=== PATIENT | male | born 1950 | race Caucasian/White ===

== ENCOUNTER 2018-11-04 02:22 | Inpatient (IN) | payer MEDICARE, OTHER ==
[2018-11-04] MEDS ORDERED: NOREPINEPHRINE 4 MG in SODIUM CHLORIDE 0.9% 250 ML IV SCH (02:30)
[2018-11-04 02:41] LABS: Basophils % (A) 0 %; Eosinophils # (A) 0.1 k/uL (0-0.7); Eosinophils % (A) 1 %; HCT 31.8 % (39.0-53.0); HGB 10.1 gm/dL (13.0-17.5); Lymphocytes # (A) 1.2 k/uL (1.0-4.8); Lymphocytes % (A) 5 %; MCH 30.2 pg (25.0-35.0); MCHC 31.8 g/dL (31.0-37.0); MCV 94.9 fL (80.0-100.0); Mean Platelet Volume 6.5; Monocytes # (A) 0.4 k/uL (0-1.0); Monocytes % (A) 2 %; Neutrophils # (A) 21.8 k/uL (1.3-7.7); Neutrophils % (A) 93 %; Platelet Count 200 k/uL (150-450); RBC 3.36 m/uL (4.30-5.90); WBC 23.6 k/uL (3.8-10.6)
[2018-11-04] MEDS: SODIUM CHLORIDE 0.9% 1,000 ML IV SCH ×2 (02:42→15:28)
--- NOTE | 2018-11-04 02:46 | ED ---
General Adult HPI - General Stated complaint: Pneumonia Time Seen by Provider: 11/04/18 02:26 Source: RN/ Mode of arrival: EMS Limitations: no limitations - History of Present Illness Initial comments: Lorenzo is a pleasantly developmentally delayed 68-year-old gentleman who is transferred to our facility from an outside facility for further management of suspected healthcare associated Pneumonia. Patient was taken to the outside facility for evaluation of fever and tachypnea. Patient was found to have an oxygen saturation of 90% be tachypneic and febrile upon his initial arrival. He was treated with vancomycin 2 L of IV fluid and initially leave fed was initiated however blood pressure improved and later said was discontinued upon arrival to our hospital. - Related Data Home Medications Medication Instructions Recorded Confirmed Acetaminophen [Tylenol] 500 mg PO Q4HR PRN 08/08/16 08/08/16 Ascorbic Acid [Vitamin C] 1,000 mg PO DAILY@0900 08/08/16 08/08/16 Atorvastatin [Lipitor] 10 mg PO DAILY 08/08/16 08/08/16 Benztropine Mesylate [Cogentin] 1 mg PO DAILY 08/08/16 08/08/16 Bethanechol [Urecholine] 25 mg PO TID@0900,1300,2100 08/08/16 08/08/16 Bisacodyl [Dulcolax] 10 mg RECTAL Q24H PRN 08/08/16 08/08/16 Eucalyptus Oil/Menthol/Camphor 1 applic TOPICAL TID PRN 08/08/16 08/08/16 [Vicks Vaporub Ointment] FLUoxetine HCL [PROzac] 10 mg PO DAILY 08/08/16 08/08/16 Ferrous Sulfate [Iron (65 MG 325 mg PO DAILY 08/08/16 08/08/16 Elemental)] Haloperidol 5 mg PO DAILY PRN 08/08/16 08/08/16 Ipratropium-Albuterol Nebulize 3 ml INHALATION RT-Q6H PRN 08/08/16 08/08/16 [Duoneb 0.5 mg-3 mg/3 ml Soln] Loratadine 10 mg PO DAILY@0900 08/08/16 08/08/16 Magnesium Hydroxide [Milk of 2,400 mg PO DAILY PRN 08/08/16 08/08/16 Magnesia] Montelukast [Singulair] 10 mg PO DAILY@0900 08/08/16 08/08/16 Multivitamins, Thera [Multivitamin 1 tab PO DAILY@0900 08/08/16 08/08/16 (formulary)] Nystatin 100,000Unit/gm Cream 1 applic TOPICAL BID 08/08/16 08/08/16 [Mycostatin Cream] Nystatin 100,000Unit/gm Cream 1 applic TOPICAL DAILY PRN 08/08/16 08/08/16 [Mycostatin Cream] OXcarbazepine 600 mg PO BID@0900,1700 08/08/16 08/08/16 Omeprazole 20 mg PO DAILY@0600 08/08/16 08/08/16 Polyethylene Glycol 3350 [Miralax] 17 gm PO DAILY@0900 08/08/16 08/08/16 Sucralfate [Carafate] 1 gm PO QID 08/08/16 08/08/16 clonazePAM [KlonoPIN] 0.5 mg PO TID@0500,1300,2100 08/08/16 08/08/16 Previous Rx's Medication Instructions Recorded HYDROcodone/APAP 7.5-325MG [[place] 1 tab PO Q4H PRN #20 tab 08/12/16 7.5-325] Cefuroxime Axetil [Ceftin] 500 mg PO BID #20 tablet 08/14/16 Ipratropium-Albuterol Nebulize 3 ml INHALATION QID #120 neb 08/14/16 [Duoneb 0.5 mg-3 mg/3 ml Soln] Allergies Allergy/AdvReac Type Severity Reaction Status Date / Time barley Allergy Unknown Verified 08/08/16 00:51 Cephalosporins Allergy Unknown Verified 08/08/16 00:51 chocolate flavor Allergy Unknown Verified 08/08/16 00:51 corn Allergy Unknown Verified 08/08/16 00:51 divalproex sodium Allergy Unknown Verified 08/08/16 00:51 [From Depakote] Penicillins Allergy Unknown Verified 08/08/16 00:51 Quinolones Allergy Unknown Verified 08/08/16 00:51 strawberry Allergy Unknown Verified 08/08/16 00:51 tree nut [Nut] Allergy Unknown Verified 08/08/16 00:51 Review of Systems ROS Statement: Those systems with pertinent positive or pertinent negative responses have been documented in the HPI. ROS Other: All systems not noted in ROS Statement are negative. Limitations: ROS unobtainable due to patients medical condition (Cognitive impairment) Past Medical History Past Medical History: COPD, GERD/Reflux, Hyperlipidemia, Hypertension, Pneumonia , Seizure Disorder Additional Past Medical History / Comment(s): cerebral palsy, iron deficiency anemia History of Any Multi-Drug Resistant Organisms: None Reported Additional Past Surgical History / Comment(s): fracture of shaft of left fibula and upper end of tibia Past Psychological History: Anxiety, Depression Smoking Status: Unknown if ever smoked General Exam - General Exam Comments Initial Comments: Physical Exam GENERAL: Syndromic appearance HENT: Normocephalic, Atraumatic. EYES: PERRL, EOMI PULMONARY: Tachypnea CARDIOVASCULAR: There is a regular rate and rhythm without any murmurs gallops or rubs. ABDOMEN: Soft and nontender with normal bowel sounds. SKIN: Skin is clear with no lesions or rashes and otherwise unremarkable. : Deferred NEUROLOGIC: Alert and oriented to person aware that he is at the hospital MUSCULOSKELETAL: Cerebral palsy PSYCHIATRIC: Childlike demeanor Limitations: no limitations Limitations: no limitations Course Vital Signs 11/04/18 11/04/18 11/04/18 02:28 02:30 02:31 Temperature 97.8 F Pulse Rate 91 Respiratory 18 16 Rate Blood Pressure 134/82 134/82 O2 Sat by Pulse 98 98 95 Oximetry 11/04/18 11/04/18 02:50 03:10 Temperature Pulse Rate 87 81 Respiratory 16 20 Rate Blood Pressure 132/80 116/74 O2 Sat by Pulse 94 L 94 L Oximetry EKG Findings - EKG Comments: EKG Findings:: EKG obtained at 2:32 AM rate is 87 rhythm is sinus there is a normal axis, normal intervals, ND 178, QRS 78, QTC 454. There are no acute ST elevations or depressions no evidence of acute ischemia or infarction. Medical Decision Making - Medical Decision Making Patient care was discussed with transferring physician as well as Dr. Luu who is aware of the plan for transfer and accepts the admission to his service Patient was suspected HCHP pneumonia treated with vancomycin Patient was initially treated with a norepinephrine infusion however on arrival his blood pressure had a MAP >80 therefore it was discontinued Repeat labs ordered Patient reevaluated After a liter discontinued, continues to have normal blood pressure. Not tachycardic afebrile. This time the patient is stable for admission to the general medical floor - Lab Data Result diagrams: 11/04/18 02:31 11/04/18 02:31 Lab Results 11/04/18 11/04/18 11/04/18 Range/Units 02:31 02:31 02:31 WBC 23.6 H (3.8-10.6) k/uL RBC 3.36 L (4.30-5.90) m/uL Hgb 10.1 L (13.0-17.5) gm/dL Hct 31.8 L (39.0-53.0) % MCV 94.9 (80.0-100.0) fL MCH 30.2 (25.0-35.0) pg MCHC 31.8 (31.0-37.0) g/dL RDW 14.0 (11.5-15.5) % Plt Count 200 (150-450) k/uL Neutrophils % 93 % Lymphocytes % 5 % Monocytes % 2 % Eosinophils % 1 % Basophils % 0 % Neutrophils # 21.8 H (1.3-7.7) k/uL Lymphocytes # 1.2 (1.0-4.8) k/uL Monocytes # 0.4 (0-1.0) k/uL Eosinophils # 0.1 (0-0.7) k/uL Basophils # 0.0 (0-0.2) k/uL PT (9.0-12.0) sec INR (<1.2) APTT (22.0-30.0) sec Sodium 136 L (137-145) mmol/L Potassium 4.9 (3.5-5.1) mmol/L Chloride 109 H (98-107) mmol/L Carbon Dioxide 23 (22-30) mmol/L Anion Gap 4 mmol/L BUN 24 H (9-20) mg/dL Creatinine 0.87 (0.66-1.25) mg/dL Est GFR (CKD-EPI)AfAm >90 (>60 ml/min/1.73 sqM) Est GFR (CKD-EPI)NonAf 88 (>60 ml/min/1.73 sqM) Glucose 119 H (74-99) mg/dL Plasma Lactic Acid Micheal (0.7-2.0) mmol/L Calcium 7.6 L (8.4-10.2) mg/dL Total Bilirubin 0.4 (0.2-1.3) mg/dL AST 102 H (17-59) U/L ALT 99 H (21-72) U/L Alkaline Phosphatase 152 H (38-126) U/L Total Creatine Kinase 38 L (55-170) U/L CK-MB (CK-2) 0.8 (0.0-2.4) ng/mL CK-MB (CK-2) Rel Index 2.1 Troponin I <0.012 (0.000-0.034) ng/mL Total Protein 4.9 L (6.3-8.2) g/dL Albumin 2.4 L (3.5-5.0) g/dL 11/04/18 11/04/18 Range/Units 02:31 02:31 WBC (3.8-10.6) k/uL RBC (4.30-5.90) m/uL Hgb (13.0-17.5) gm/dL Hct (39.0-53.0) % MCV (80.0-100.0) fL MCH (25.0-35.0) pg MCHC (31.0-37.0) g/dL RDW (11.5-15.5) % Plt Count (150-450) k/uL Neutrophils % % Lymphocytes % % Monocytes % % Eosinophils % % Basophils % % Neutrophils # (1.3-7.7) k/uL Lymphocytes # (1.0-4.8) k/uL Monocytes # (0-1.0) k/uL Eosinophils # (0-0.7) k/uL Basophils # (0-0.2) k/uL PT 10.8 (9.0-12.0) sec INR 1.0 (<1.2) APTT 26.4 (22.0-30.0) sec Sodium (137-145) mmol/L Potassium (3.5-5.1) mmol/L Chloride (98-107) mmol/L Carbon Dioxide (22-30) mmol/L Anion Gap mmol/L BUN (9-20) mg/dL Creatinine (0.66-1.25) mg/dL Est GFR (CKD-EPI)AfAm (>60 ml/min/1.73 sqM) Est GFR (CKD-EPI)NonAf (>60 ml/min/1.73 sqM) Glucose (74-99) mg/dL Plasma Lactic Acid Micheal 1.0 (0.7-2.0) mmol/L Calcium (8.4-10.2) mg/dL Total Bilirubin (0.2-1.3) mg/dL AST (17-59) U/L ALT (21-72) U/L Alkaline Phosphatase (38-126) U/L Total Creatine Kinase (55-170) U/L CK-MB (CK-2) (0.0-2.4) ng/mL CK-MB (CK-2) Rel Index Troponin I (0.000-0.034) ng/mL Total Protein (6.3-8.2) g/dL Albumin (3.5-5.0) g/dL Disposition Clinical Impression: HCAP (healthcare-associated pneumonia), Cerebral palsy Disposition: ADMITTED IP TO THIS [facility] Condition: Serious Referrals: None,Stated [REFERRING] - 1-2 days
[2018-11-04 02:49] LABS: Partial Thromboplastin Time 26.4 sec (22.0-30.0); Prothrombin Time 10.8 sec (9.0-12.0)
[2018-11-04 02:51] LABS: Creatine Kinase 38 U/L (55-170)
[2018-11-04 02:52] LABS: ALT 99 U/L (21-72); AST 102 U/L (17-59); Albumin 2.4 g/dL (3.5-5.0); Alkaline Phosphatase 152 U/L (38-126); Anion Gap 4 mmol/L; Blood Urea Nitrogen 24 mg/dL (9-20); Calcium 7.6 mg/dL (8.4-10.2); Carbon Dioxide 23 mmol/L (22-30); Chloride 109 mmol/L (98-107); Glucose 119 mg/dL (74-99); Potassium 4.9 mmol/L (3.5-5.1); Sodium 136 mmol/L (137-145); Total Bilirubin 0.4 mg/dL (0.2-1.3); Total Protein 4.9 g/dL (6.3-8.2)
[2018-11-04 03:04] LABS: Creatine Kinase MB 0.8 ng/mL (0.0-2.4); Troponin I <0.012 ng/mL (0.000-0.034)
[2018-11-04] MEDS ORDERED: NALOXONE 0.4 MG/ML 1 ML VIAL IV PRN (04:00)
[2018-11-04] MEDS ORDERED: ACETAMINOPHEN TAB 500 MG TAB PO PRN (11:31)
[2018-11-04] MEDS ORDERED: IPRATROPIUM-ALBUTEROL 3 ML NEB INHALATION PRN (11:31)
[2018-11-04] MEDS ORDERED: BISACODYL 10 MG SUPP RECTAL PRN (11:31)
[2018-11-04] MEDS ORDERED: VANCOMYCIN IV PER PHARMACY 1 EACH MISC MISCELLANE PRN (14:19)
[2018-11-04] MEDS ORDERED: VANCOMYCIN 1,250 MG in SODIUM CHLORIDE 0.9% 250 ML IVPB ONE (15:00)
[2018-11-04] MEDS: AZTREONAM 2 GM in SODIUM CHLORIDE 0.9% 100 ML IVPB SCH (18:56)
[2018-11-04] MEDS: clonazePAM 0.5 MG TAB PO SCH (20:16)
[2018-11-04] MEDS: ATORVASTATIN 10 MG TAB PO SCH (20:16)
--- NOTE | 2018-11-04 21:30 | P.HPIM ---
History of Present Illness H&P Date: 11/04/18 Chief Complaint: Shortness of breath Patient is a 68-year-old male with a known history of cerebral palsy, developmentally delayed, gait dysfunction, COPD, GERD, hypertension, hyperlipidemia and seizure disorder, dysphagia on mechanical soft diet was initially sent to outside hospital facility due to fever and tachypnea. Patient was found to have oxygen saturation around 90% with fever and tachypnea. Patient had chest x-ray and CTA chest was done due to elevated d- dimer. CT chest showed mid to lower lung bilateral or unilateral pastries with adjacent interstitial thickening. Patient was treated with vancomycin and also occluded to IV fluid bolus was given. Patient was hypotensive initially and was started on Levophed drip and 2 L normal saline was given. Blood pressure improved by the time he arrived to [facility]. Blood pressures currently stable. Patient cannot provide any history at this time. Most of the history was taken from outside hospital transfer records and ER report.. Lactic acid not elevated Influenza a and B and RSV negative D-dimer was slightly elevated. Patient had CTA chest showed no pulmonary embolism. CT angiogram of the chest showed mid to lower lung bilateral alveolar opacities with adjacent interstitial thickening. Tree-in-bud opacities are also noted. Bibasilar bronchial wall thickening. Differential includes ARDS, infectious bronchiolitis, pneumonitis, aspiration, hemorrhage extra. EKG showed normal sinus rhythm. Review of Systems Complete review of systems could not be obtained from the patient Past Medical History Past Medical History: COPD, GERD/Reflux, Hyperlipidemia, Hypertension, Pneumonia , Seizure Disorder Additional Past Medical History / Comment(s): cerebral palsy, developmentally delayed, mental retardation, gait dysfunction, dysphagia-mechanical soft diet and drinks from control flow cup, last seizure-unknown, iron deficiency anemia, UTIs, urinary retention, pneumonias/sepsis, OA, DJD, DDD L1-S1, colitis, constipation, hemorrhoids, bowel obstruction with septic shock, L tibial fracture in past. History of Any Multi-Drug Resistant Organisms: None Reported Past Surgical History: Appendectomy, Cholecystectomy, Joint Replacement, Orthopedic Surgery, Prostate Surgery, Tonsillectomy Additional Past Surgical History / Comment(s): EGD, colonoscopy, L buccal benign lesion, TURP for BPH, R total hip arthroplasty then displacement with surgery, sinus polypectomy. Past Anesthesia/Blood Transfusion Reactions: No Reported Reaction Smoking Status: Never smoker - Past Family History Mother Family Medical History: Cancer Additional Family Medical History / Comment(s): Mother had breast cancer. Medications and Allergies Home Medications Medication Instructions Recorded Confirmed Type Acetaminophen [Tylenol] 500 mg PO Q6H PRN 08/08/16 11/04/18 History Atorvastatin [Lipitor] 10 mg PO HS@2100 08/08/16 11/04/18 History Benztropine Mesylate [Cogentin] 1 mg PO DAILY@0900 08/08/16 11/04/18 History Bethanechol [Urecholine] 25 mg PO TID@0900,1300,2100 08/08/16 11/04/18 History Bisacodyl [Dulcolax] 10 mg RECTAL Q48H PRN 08/08/16 11/04/18 History Ferrous Sulfate [Iron (65 MG 325 mg PO DAILY@0900 08/08/16 11/04/18 History Elemental)] Loratadine 10 mg PO DAILY@0900 08/08/16 11/04/18 History Magnesium Hydroxide [Milk of 2,400 mg PO DAILY PRN 08/08/16 11/04/18 History Magnesia] Montelukast [Singulair] 10 mg PO DAILY@0900 08/08/16 11/04/18 History Multivitamins, Thera [Multivitamin 1 tab PO DAILY@0900 08/08/16 11/04/18 History (formulary)] OXcarbazepine 600 mg PO BID@0900,1700 08/08/16 11/04/18 History Omeprazole 20 mg PO DAILY@0600 08/08/16 11/04/18 History Polyethylene Glycol 3350 [Miralax] 17 gm PO DAILY@0900 08/08/16 11/04/18 History clonazePAM [KlonoPIN] 0.5 mg PO TID@0500,1300,2100 08/08/16 11/04/18 History Ascorbic Acid [Vitamin C] 500 mg PO DAILY@0911/04/18 11/04/18 History Calazime 1 applic TOPICAL BID 11/04/18 11/04/18 History DULoxetine HCL [Cymbalta] 30 mg PO DAILY@0900 11/04/18 11/04/18 History FLUoxetine HCL [PROzac] 20 mg PO DAILY@0911/04/18 11/04/18 History Fluticasone Nasal [place] [Flonase 1 spray EA NOSTRIL DAILY@0900 11/04/18 History Nasal [place]] Haloperidol 2.5 mg PO DAILY@0900,1300,2100 11/04/18 11/04/18 History Haloperidol [Haldol] 10 mg PO TID@0900,1300,2100 11/04/18 11/04/18 History Ipratropium-Albuterol Nebulize 3 ml INHALATION Q12H PRN 11/04/18 11/04/18 History [Duoneb 0.5 mg-3 mg/3 ml Soln] Ipratropium/Albuterol Sulfate 1 puff INHALATION 11/04/18 11/04/18 History [Combivent Respimat Inhaler] RT-QID@,,, Meloxicam [Mobic] 15 mg PO DAILY@0900 11/04/18 11/04/18 History Na Phos,M-B/Na Phos,Di-Ba [Fleet 133 ml RECTAL Q72H PRN 11/04/18 11/04/18 History Adult] guaiFENesin-DM 100-10MG/5ML 10 ml PO Q4H PRN 11/04/18 11/04/18 History [Robitussin DM] Allergies Allergy/AdvReac Type Severity Reaction Status Date / Time barley Allergy Unknown Verified 11/04/18 07:56 Cephalosporins Allergy Unknown Verified 11/04/18 07:56 chocolate flavor Allergy Unknown Verified 11/04/18 07:56 corn Allergy Unknown Verified 11/04/18 07:56 divalproex sodium Allergy Unknown Verified 11/04/18 07:56 [From Depakote] milk Allergy Unknown Verified 11/04/18 07:56 Penicillins Allergy Unknown Verified 11/04/18 07:56 Quinolones Allergy Unknown Verified 11/04/18 07:56 strawberry Allergy Unknown Verified 11/04/18 07:56 tree nut [Nut] Allergy Unknown Verified 11/04/18 07:56 Physical Exam Vitals: Vital Signs Temp Pulse Resp BP Pulse Ox 11/04/18 06:28 78 20 131/75 94 L 11/04/18 04:50 85 20 125/77 11/04/18 04:40 82 20 125/79 99 11/04/18 04:30 83 18 125/75 98 11/04/18 04:10 76 20 125/79 99 11/04/18 03:50 80 18 125/77 100 11/04/18 03:40 84 18 114/69 93 L 11/04/18 03:30 83 18 116/74 93 L 11/04/18 03:10 81 20 116/74 94 L 11/04/18 02:50 87 16 132/80 94 L 11/04/18 02:31 97.8 F 91 16 134/82 95 11/04/18 02:30 18 134/82 98 11/04/18 02:28 98 Intake and Output 11/03/18 11/04/18 11/04/18 22:59 06:59 14:59 Intake Total 0.432 Balance 0.432 Intake: Intake, IV Titration 0.432 Amount Norepinephrine 4 mg In 0.432 Sodium Chloride 0.9% 250 ml @ Titrate IV .Q0M [facility] Rx#:[id number] Other: Weight 54.431 kg PHYSICAL EXAMINATION: Patient is lying in the bed comfortably, no acute distress, awake alert and oriented 1.. HEENT: Normocephalic. Neck is supple. Pupils reactive. Nostrils clear. Oral cavity is moist. Ears reveal no drainage. Neck reveals no JVD, carotid bruits, or thyromegaly. CHEST EXAMINATION: Trachea is central. Symmetrical expansion. Bibasilar coarse breath sounds. No wheezing.. CARDIAC: Normal S1, S2 with no gallops. No murmurs ABDOMEN: Soft. Nontender Bowel sounds normal. No organomegaly. No abdominal bruits. Extremities: reveal no edema. No clubbing or cyanosis Neurologically awake, alert, oriented x1 . Able to move all his extremities. Patient is developmentally delayed. Skin: No rash or skin lesions. Psychiatric: Coperative. Could not basis completely Musculoskeletal: No joint swelling or deformity. Normal range of motion. Results CBC & Chem 7: 11/04/18 02:31 11/04/18 02:31 Labs: Abnormal Lab Results - Last 24 Hours (Table) 11/04/18 11/04/18 11/04/18 Range/Units 02:31 02:31 02:31 WBC 23.6 H (3.8-10.6) k/uL RBC 3.36 L (4.30-5.90) m/uL Hgb 10.1 L (13.0-17.5) gm/dL Hct 31.8 L (39.0-53.0) % Neutrophils # 21.8 H (1.3-7.7) k/uL Sodium 136 L (137-145) mmol/L Chloride 109 H (98-107) mmol/L BUN 24 H (9-20) mg/dL Glucose 119 H (74-99) mg/dL Calcium 7.6 L (8.4-10.2) mg/dL AST 102 H (17-59) U/L ALT 99 H (21-72) U/L Alkaline Phosphatase 152 H (38-126) U/L Total Creatine Kinase 38 L (55-170) U/L Total Protein 4.9 L (6.3-8.2) g/dL Albumin 2.4 L (3.5-5.0) g/dL Thrombosis Risk Factor Assmnt - DVT/VTE Prophylaxis DVT/VTE Prophylaxis: Pharmacologic Prophylaxis ordered - Choose All That Apply Any of the Below Risk Factors Present?: Yes Each Factor Represents 1 point: Abnormal pulmonary function (COPD), Serious lung disease incl. pneumonia (< 1month) Other Risk Factors: Yes Each Risk Factor Represents 2 Points: Age 61-74 years Other congenital or acquired thrombophilia - If yes, enter type in comment: No Thrombosis Risk Factor Assessment Total Risk Factor Score: 4 Thrombosis Risk Factor Assessment Level: Moderate Risk Assessment and Plan Assessment: Bibasilar pneumonia possible HCAP Sepsis secondary to above. Tachycardia tachypnea and leukocytosis with WBC 23 Elevated liver enzymes Cerebral palsy and developmentally delayed Dysphagia-mechanical soft diet History of seizure disorder Osteoarthritis Degenerative disc disease Bowel obstruction BPH status post TURP Iron deficiency anemia History of bowel obstruction DVT prophylaxis Plan: Patient will be continued on IV fluids with normal saline at 75 mL per hour. Patient was started on vancomycin and aztreonam as per ID recommendations. Continue with home medications and avoid sedatives. Mechanical soft diet. Follow up culture reports. Repeat CBC and CMP tomorrow. will consult pulmonary due to alveolar opacities with adjacent interstitial thickening and Tree-in-bud opacities. Further recommendations based on the clinical course. Prognosis is guarded with multiple medical problems and comorbid conditions. Time with Patient: Greater than 30
[2018-11-04] MEDS: VANCOMYCIN 1,000 MG in SODIUM CHLORIDE 0.9% 250 ML IVPB SCH (23:29)
--- NOTE | 2018-11-05 00:56 | CONS ---
CONSULTATION DATE OF SERVICE: 11/04/2018. REASON FOR CONSULT: pneumonia. HISTORY OF PRESENT ILLNESS: The patient is a 68-year-old male with past medical history significant for developmental delay in this patient who is a intermediate resident. The patient was sent to the [facility]. The patient was noticed to be hypoxic and running a fever of 101 degrees Fahrenheit. The patient was evaluated at that facility where the patient noticed to have elevated white count. The patient did have a CT angiogram that was negative for PE however did show evidence of pneumonia. Patient was hypotensive with difficulty requiring fluid boluses and Levophed for short duration. However, she was able to be weaned off the Levophed. The patient subsequently has been transferred to this facility where the management of underlying sepsis and pneumonia. Infectious Disease was consulted for further recommendation regardring antibiotic therapy. The patient does have a component of development delay and it is a little bit hard to communicate with this patient. However, specifically denies any nausea, vomiting. No chest pain: Did have some cough, not bringing up any sputum or any diarrhea. REVIEW OF SYSTEMS: Could not be reliably obtained. The positive points have been mentioned in HPI. PAST MEDICAL HISTORY: COPD, GERD, hypertension, hyperlipidemia, pneumonia, seizure disorder, cerebral palsy, developmental delay, degenerative disc disease. PAST MEDICAL HISTORY: Appendectomy, cholecystectomy, tonsillectomy, prostate surgery, TURP, right total hip arthroplasty. SOCIAL HISTORY: No history of smoking, drinking or drug use. A intermediate resident. FAMILY HISTORY: Mother with history of breast cancer. ALLERGIES: PENICILLIN, and CEPHALOSPORIN. MEDICATIONS: The patient is currently on Tylenol, DuoNeb, vitamin C. Lipitor, Cogentin, Dulcolax, Klonopin, Singulair, Narcan, Protonix, did receive a dose of vancomycin at another facility. PHYSICAL EXAMINATION: Blood pressure is 117/54 with a pulse of 81, temperature 98.8. He is 96% on 2 L nasal cannula. General description is an elderly male lying in bed in no distress. No tachypnea or respiration of axillary use. HEENT: Shows pallor. No scleral icterus. Oral mucosa is dry. Neck tracheal central. No thyromegaly. LUNGS: Unlabored breathing. Decreased breath sounds in the base, with crackles heart S1, S2. Regular rate abdomen: Noted distal rigidity extremities: Feet examination: No rash or mass palpable neurological patient is awake and alert. However, hard to determine orientation in this patient. LABS: Hemoglobin is 10.1, white count 23.6 with a BUN of 24, creatinine 0.7 with elevated. DIAGNOSTIC IMPRESSION/PLAN: 1. Patient admitted to the hospital with sepsis and the patient did have fever of 101 degrees Fahrenheit. The patient did have elevated white count at 23,000 in this patient who did have evidence of hypoxemia with CT suggestive of pneumonia with no pulmonary embolism likely the source of his sepsis. The patient is a intermediate resident. Hence, we will need to cover for the resistant gram positive as well as gram-negative pathogen. 2. Patient does have a PENICILLIN CEPHALOSPORIN ALLERGY that will limit the number of antibiotics that could be safely used. 3. Elevated liver enzymes. Rule out intraabdominal pathology. PLAN: 1. Will try to obtain sputum for Gram stain and culture and sensitivity . 2. Obtain ultrasound of liver and gallbladder area for with intermittent exam. 3. Vancomycin pharmacy to dose target of 15: While watching his kidney function closely. 4. Azactam 2 g q.8 to 12. 5. We will follow up on his clinical condition and culture to further adjust medication if needed thank you for this consultation. 6. Will follow this patient along with you. NISA / DARIN: [id number] /
[2018-11-05] MEDS: AZTREONAM 2 GM in SODIUM CHLORIDE 0.9% 100 ML IVPB SCH ×2 (04:13→16:44)
[2018-11-05] MEDS: SODIUM CHLORIDE 0.9% 1,000 ML IV SCH ×2 (06:19→16:45)
[2018-11-05] MEDS: clonazePAM 0.5 MG TAB PO SCH ×3 (06:19→20:53)
[2018-11-05] MEDS: BENZTROPINE MESYLATE 1 MG TAB PO SCH (08:28)
[2018-11-05] MEDS: PANTOPRAZOLE 40 MG TABLET PO SCH (08:28)
[2018-11-05] MEDS: MONTELUKAST 10 MG TAB PO SCH (08:28)
[2018-11-05] MEDS: ASCORBIC ACID 500 MG TAB PO SCH (08:28)
[2018-11-05 09:40] VITALS: BMI 19.3
[2018-11-05 09:50] LABS: Basophils % (A) 0 %; Eosinophils # (A) 0.2 k/uL (0-0.7); Eosinophils % (A) 2 %; HCT 29.6 % (39.0-53.0); HGB 9.2 gm/dL (13.0-17.5); Lymphocytes # (A) 1.1 k/uL (1.0-4.8); Lymphocytes % (A) 9 %; MCH 29.5 pg (25.0-35.0); MCHC 31.1 g/dL (31.0-37.0); MCV 95.1 fL (80.0-100.0); Mean Platelet Volume 6.8; Monocytes # (A) 0.3 k/uL (0-1.0); Monocytes % (A) 3 %; Neutrophils # (A) 10.2 k/uL (1.3-7.7); Neutrophils % (A) 86 %; Platelet Count 188 k/uL (150-450); RBC 3.12 m/uL (4.30-5.90); WBC 11.9 k/uL (3.8-10.6)
[2018-11-05 10:11] LABS: ALT 54 U/L (21-72); AST 20 U/L (17-59); Albumin 2.2 g/dL (3.5-5.0); Alkaline Phosphatase 124 U/L (38-126); Anion Gap 3 mmol/L; Blood Urea Nitrogen 17 mg/dL (9-20); Calcium 8.5 mg/dL (8.4-10.2); Carbon Dioxide 24 mmol/L (22-30); Chloride 111 mmol/L (98-107); Glucose 94 mg/dL (74-99); Potassium 4.4 mmol/L (3.5-5.1); Sodium 138 mmol/L (137-145); Total Bilirubin 0.2 mg/dL (0.2-1.3); Total Protein 4.7 g/dL (6.3-8.2)
[2018-11-05] MEDS: VANCOMYCIN 1,000 MG in SODIUM CHLORIDE 0.9% 250 ML IVPB SCH (11:14)
--- NOTE | 2018-11-05 13:10 | XR ---
EXAMINATION TYPE: XR chest 1V DATE OF EXAM: 11/05/2018 HISTORY: Shortness of breath. COMPARISON: 08/10/2016 TECHNIQUE: Single view of the chest is submitted. FINDINGS: Demonstrated are scattered senescent parenchymal change. Patchy right perihilar and right lower lobe infiltrate. Correlate for pneumonia. The heart is stable. Hilar and mediastinal structures are within normal limits. Degenerative changes are seen of the dorsal spine. IMPRESSION: 1. Patchy right perihilar and right lower lobe infiltrate. Correlate for pneumonia.
[2018-11-05] MEDS ORDERED: MAGNESIUM HYDROXIDE 2,400 MG/10 ML CUP PO PRN (15:25)
[2018-11-05] MEDS ORDERED: guaiFENesin-DM 100-10MG/5ML 10 ML CUP PO PRN (15:25)
--- NOTE | 2018-11-05 15:27 | P.CNPUL ---
History of Present Illness Consult date: 11/05/18 Reason for consult: dyspnea, pneumonia History of present illness: 68-year-old male patient known to me from previous hospitalizations, was noted of cerebral palsy and developmental delay and the patient lives in [place] in [place]. The patient got short of breath and he started having increased cough and congestion along with fever and tachycardia and tachypnea. The patient was initially taken to [facility] with the patient was found to be slightly hypotensive also. The patient was given IV fluids. The patient was given IV antibiotics including vancomycin. The patient was given also pressors and believes that she was on low-dose levothyroid and subsequently but pressure improved. Following that the patient got transferred to [facility]. CAT scan of the chest was done in the hospital that showed no evidence of any pulmonary embolism. Limited infiltration of the lung bases was Initiated. No significant leukocytosis. The rest of the blood work was essentially within normal limits. The patient was seen on the medical floor. The patient was on room air oxygen. He had a congested cough. Unable to bring up much sputum. Not having any chest pain. The patient has unable to swallow well without any difficulties with aspiration. Influenza screen that was done and [facility] was negative. Currently is hemodynamically stable. He was seen by infectious disease. He was started on IV vancomycin. He is also on IV aztreonam. He is known to have multiple ALLERGIES which limited our choice of antibiotics to include vancomycin. A repeat chest x-ray was done today that showed a patchy right perihilar and right lower lobe infiltrate here in our hospital. Review of Systems ROS unobtainable: due to mental status Constitutional: Reports fatigue, Reports fever, Reports weakness Eyes: denies as per HPI, denies blurred vision, denies bulging eye, denies decreased vision, denies diplopia, denies discharge, denies dry eye, denies irritation, denies itching, denies pain, denies photophobia, denies loss of peripheral vision, denies loss of vision, denies tunnel vision/blind spots Ears: deny: decreased hearing, ear discharge, earache, tinnitus Ears, nose, mouth and throat: Denies headache, Denies sore throat Cardiovascular: Denies chest pain, Denies shortness of breath Respiratory: Reports as per HPI (the patient has severe kyphoscoliosis), Reports cough, Reports cough with sputum Gastrointestinal: Reports as per HPI, Denies abdominal pain, Denies diarrhea, Denies nausea, Denies vomiting Genitourinary: Reports as per HPI Musculoskeletal: Reports as per HPI Musculoskeletal: absent: ankle pain, ankle stiffness, ankle swelling, as per HPI , elbow pain, elbow stiffness, elbow swelling, foot pain, foot stiffness, foot swelling, hand pain, hand stiffness, hand swelling, hip pain, hip stiffness, hip swelling, knee pain, knee stiffness, knee swelling, shoulder pain, shoulder stiffness, shoulder swelling, wrist pain, wrist stiffness, wrist swelling Integumentary: Reports as per HPI Neurological: Reports balance difficulties, Reports lack of coordination, Reports motor disturbance, Reports spasticity, Reports weakness Psychiatric: Reports as per HPI Endocrine: Reports as per HPI Hematologic/Lymphatic: Reports as per HPI Allergic/Immunologic: Reports as per HPI Past Medical History Past Medical History: COPD, GERD/Reflux, Hyperlipidemia, Hypertension, Pneumonia , Seizure Disorder Additional Past Medical History / Comment(s): Cerebral palsy, mental retardation and developmental delay, gait dysfunction, history of dysphagia requiring mechanical soft diet, history of seizure disorders, iron deficiency anemia, history of UTIs and previous history of urine retention, previous history of pneumonias, osteoarthritis, kyphoscoliosis of the thoracic spine, degenerative disc disease involving L5-S1, chronic constipation, hemorrhoids, previous history of bowel obstruction, previous history of septic shock, history of major depression, history of chronic anxiety, hypertension, hyperlipidemia History of Any Multi-Drug Resistant Organisms: None Reported Past Surgical History: Appendectomy, Cholecystectomy, Joint Replacement, Orthopedic Surgery, Prostate Surgery, Tonsillectomy Additional Past Surgical History / Comment(s): EGD, colonoscopy, L buccal benign lesion, TURP for BPH, R total hip arthroplasty then displacement with surgery, sinus polypectomy. Past Anesthesia/Blood Transfusion Reactions: No Reported Reaction Smoking Status: Never smoker - Past Family History Mother Family Medical History: Cancer Additional Family Medical History / Comment(s): Mother had breast cancer. Medications and Allergies Home Medications Medication Instructions Recorded Confirmed Type Acetaminophen [Tylenol] 500 mg PO Q6H PRN 08/08/16 11/04/18 History Atorvastatin [Lipitor] 10 mg PO HS@2100 08/08/16 11/04/18 History Benztropine Mesylate [Cogentin] 1 mg PO DAILY@0900 08/08/16 11/04/18 History Bethanechol [Urecholine] 25 mg PO TID@0900,1300,2100 08/08/16 11/04/18 History Bisacodyl [Dulcolax] 10 mg RECTAL Q48H PRN 08/08/16 11/04/18 History Ferrous Sulfate [Iron (65 MG 325 mg PO DAILY@0900 08/08/16 11/04/18 History Elemental)] Loratadine 10 mg PO DAILY@0900 08/08/16 11/04/18 History Magnesium Hydroxide [Milk of 2,400 mg PO DAILY PRN 08/08/16 11/04/18 History Magnesia] Montelukast [Singulair] 10 mg PO DAILY@0900 08/08/16 11/04/18 History Multivitamins, Thera [Multivitamin 1 tab PO DAILY@0900 08/08/16 11/04/18 History (formulary)] OXcarbazepine 600 mg PO BID@0900,1700 08/08/16 11/04/18 History Omeprazole 20 mg PO DAILY@0600 08/08/16 11/04/18 History Polyethylene Glycol 3350 [Miralax] 17 gm PO DAILY@0900 08/08/16 11/04/18 History clonazePAM [KlonoPIN] 0.5 mg PO TID@0500,1300,2100 08/08/16 11/04/18 History Ascorbic Acid [Vitamin C] 500 mg PO DAILY@0911/04/18 11/04/18 History Calazime 1 applic TOPICAL BID 11/04/18 11/04/18 History DULoxetine HCL [Cymbalta] 30 mg PO DAILY@0900 11/04/18 11/04/18 History FLUoxetine HCL [PROzac] 20 mg PO DAILY@0900 11/04/18 11/04/18 History Fluticasone Nasal Wiley [Flonase 1 spray EA NOSTRIL DAILY@89911/04/18 History Nasal Wiley] Haloperidol 2.5 mg PO DAILY@0900,1300,2100 11/04/18 11/04/18 History Haloperidol [Haldol] 10 mg PO TID@0900,1300,2100 11/04/18 11/04/18 History Ipratropium-Albuterol Nebulize 3 ml INHALATION Q12H PRN 11/04/18 11/04/18 History [Duoneb 0.5 mg-3 mg/3 ml Soln] Ipratropium/Albuterol Sulfate 1 puff INHALATION 11/04/18 11/04/18 History [Combivent Respimat Inhaler] RT-QID@00,06,17,21 Meloxicam [Mobic] 15 mg PO DAILY@0900 11/04/18 11/04/18 History Na Phos,M-B/Na Phos,Di-Ba [Fleet 133 ml RECTAL Q72H PRN 11/04/18 11/04/18 History Adult] guaiFENesin-DM 100-10MG/5ML 10 ml PO Q4H PRN 11/04/18 11/04/18 History [Robitussin DM] Allergies Allergy/AdvReac Type Severity Reaction Status Date / Time barley Allergy Unknown Verified 11/04/18 07:56 Cephalosporins Allergy Unknown Verified 11/04/18 07:56 chocolate flavor Allergy Unknown Verified 11/04/18 07:56 corn Allergy Unknown Verified 11/04/18 07:56 divalproex sodium Allergy Unknown Verified 11/04/18 07:56 [From Depakote] milk Allergy Unknown Verified 11/04/18 07:56 Penicillins Allergy Unknown Verified 11/04/18 07:56 Quinolones Allergy Unknown Verified 11/04/18 07:56 strawberry Allergy Unknown Verified 11/04/18 07:56 tree nut [Nut] Allergy Unknown Verified 11/04/18 07:56 Physical Exam Vitals: Vital Signs Temp Pulse Resp BP Pulse Ox 11/05/18 13:49 97.6 F 84 16 135/68 96 11/05/18 07:16 98.2 F 75 16 125/63 95 11/04/18 22:34 98.0 F 56 L 16 112/60 94 L 11/04/18 19:59 93 L Intake and Output 11/05/18 11/05/18 11/05/18 06:59 14:59 22:59 Intake Total 720 Balance 720 Intake: Oral 720 Other: # Voids 1 Weight 54.431 kg Gen. appearance the patient is active, comfortable likely distress. He has obvious signs of cerebral palsy. He does have a garbled speech. Nonacute respiratory distress. Head exam was generally normal. There was no scleral icterus or corneal arcus. Mucous membranes were moist. Neck was supple and without jugular venous distension, thyromegaly, or carotid bruits. Carotids were easily palpable bilaterally. There was no adenopathy. Lungs show kyphoscoliosis along with crackles in lung bases more so on the right lung base compared to the left. Cardiac exam revealed the PMI to be normally situated and sized. The rhythm was regular and no extrasystoles were noted during several minutes of auscultation. The first and second heart sounds were normal and physiologic splitting of the second heart sound was noted. There were no murmurs, rubs, clicks, or gallops. Abdominal exam revealed normal bowel sounds. The abdomen was soft, non-tender, and without masses, organomegaly, or appreciable enlargement of the abdominal aorta. Examination of the extremities revealed easily palpable radial, femoral and pedal pulses. There was no cyanosis, clubbing or edema.The patient has some chronic contractures lower extremities related to cerebral palsy. Examination of the skin revealed no evidence of significant rashes, suspicious appearing nevi or other concerning lesions. Results - Laboratory Findings CBC and BMP: 11/05/18 09:29 11/05/18 09:29 PT/INR, D-dimer PT 10.8 sec (9.0-12.0) 11/04/18 02:31 INR 1.0 (<1.2) 11/04/18 02:31 Abnormal lab findings: Abnormal Labs 11/04/18 11/04/18 11/04/18 02:31 02:31 02:31 WBC 23.6 H RBC 3.36 L Hgb 10.1 L Hct 31.8 L Neutrophils # 21.8 H Sodium 136 L Chloride 109 H BUN 24 H Glucose 119 H Calcium 7.6 L AST 102 H ALT 99 H Alkaline Phosphatase 152 H Total Creatine Kinase 38 L Total Protein 4.9 L Albumin 2.4 L 11/05/18 11/05/18 09:29 09:29 WBC 11.9 H RBC 3.12 L Hgb 9.2 L Hct 29.6 L Neutrophils # 10.2 H Sodium Chloride 111 H BUN Glucose Calcium AST ALT Alkaline Phosphatase Total Creatine Kinase Total Protein 4.7 L Albumin 2.2 L - Diagnostic Findings Chest x-ray: image reviewed Assessment and Plan Plan: assessment 1 right lung pneumonia, consider aspiration. The patient had presented to the Hospital because of a right lung pneumonia, hypoxemia, tachycardia and tachypnea and hypotension and responded nicely to fluid and antibiotics. Currently off pressors on a medical floor. Chest x-ray confirms a right lung pneumonia findings. CAT scan of the chest that was done was negative for pulmonary embolism. 2 previous history of pneumonias with history of diminished laryngeal excursion and evidence of silent aspiration of thin liquids and significant delay in swallow based on the previous modified swallow and this evaluation was done approximately 3 years ago. 3 leukocytosis, improving secondary to underlying pneumonia 3 acute febrile illness secondary to above, recovered and the patient is currently afebrile hemodynamically stable 4 cerebral palsy. 5 suspect history of aspiration pneumonias 6 epilepsy 7 hypertension 8 hyperlipidemia 9 developmental delay and mental retardation secondary to cerebral palsy 10 chronic iron deficiency anemia 11 thoracic kyphoscoliosis 12nursing home resident Plan Continue aztreonam and vancomycin for now.May consider addition of an anaerobic coverage if the patient's condition does not show any improvement. Clinically is doing better. He is currently on room air. Last the patient provide a sputum Gram stain and culture. We'll ask the patient to continue deep breathing and performing pulmonary toileting. DuoNeb nebulized treatments around the clock. Aspiration precautions. Diseases able to repeat a swallow evaluation on this patient.psychosis improving. Cultures of been negative thus far. We'll continue to follow. All of the outpatient medications need to be resumed.
--- NOTE | 2018-11-05 16:07 | P.PN ---
Subjective Progress Note Date: 11/05/18 Patient has a history of cerebral palsy but is able to understand and communicate with yes or no. He is trying to talk but I cannot understand what is trying to say. He does not complain of any shortness of breath or cough, he does not complains any chest pain racing heart. He is moving all of his upper and lower extremities on my command. Objective - Vital Signs Vital signs: Vital Signs Temp 97.6 F 11/05/18 13:49 Pulse 84 11/05/18 13:49 Resp 16 11/05/18 13:49 BP 135/68 11/05/18 13:49 Pulse Ox 96 11/05/18 13:49 Intake & Output 11/04/18 11/05/18 11/05/18 18:59 06:59 18:59 Intake Total 240 720 Balance 240 720 Weight 54.431 kg Intake: Oral 240 720 Other: Voiding Method Toilet Toilet Urinal # Voids 2 1 1 - Exam On exam, alert and oriented has a history of cerebral palsy but able to communicate with yes or no. He is having garbled speech HEENT: Conjunctivae normal. eyes normal. NECK: No JVD. No thyroid enlargement. No LNs CARDIOVASCULAR: S1, S2 muffled. No murmur has kyphoscoliosis, crackles at the lung bases ABDOMEN: Soft, nontender . No guarding. no masses palpable. No ascites, No hepatosplenomegaly.Bowel sounds heard. LEGS: No edema. no swelling NERVOUS SYSTEM: Denies is a cerebral palsy is able to move his upper and lower Ixodes and commence Skin: no ulcer no rash - Labs CBC & Chem 7: 11/05/18 09:29 11/05/18 09:29 Labs: Abnormal Lab Results - Last 24 Hours (Table) 11/05/18 11/05/18 Range/Units 09:29 09:29 WBC 11.9 H (3.8-10.6) k/uL RBC 3.12 L (4.30-5.90) m/uL Hgb 9.2 L (13.0-17.5) gm/dL Hct 29.6 L (39.0-53.0) % Neutrophils # 10.2 H (1.3-7.7) k/uL Chloride 111 H (98-107) mmol/L Total Protein 4.7 L (6.3-8.2) g/dL Albumin 2.2 L (3.5-5.0) g/dL Assessment and Plan Assessment: Right lung pneumonia rule out aspiration Leukocytosis improved Cerebral palsy Epilepsy Hypertension Hyperlipidemia Kyphoscoliosis Plan - Continue vancomycin and aztreonam - Continue rest of home medications - Continue breathing treatments - DVT and GI prophylaxis - We'll follow up on the patient
[2018-11-05] MEDS: OXcarbazepine 300 MG TAB PO SCH (16:44)
[2018-11-05] MEDS: BETHANECHOL 25 MG TAB PO SCH (20:53)
[2018-11-05] MEDS: ATORVASTATIN 10 MG TAB PO SCH (20:53)
[2018-11-05] MEDS: HALOPERIDOL ORAL SOLN 10 MG/5 ML CUP PO SCH (20:53)
[2018-11-05] MEDS ORDERED: HALOPERIDOL 10 MG PO SCH (21:00)
[2018-11-06] MEDS: VANCOMYCIN 1,000 MG in SODIUM CHLORIDE 0.9% 250 ML IVPB SCH ×3 (01:10→23:31)
[2018-11-06] MEDS: AZTREONAM 2 GM in SODIUM CHLORIDE 0.9% 100 ML IVPB SCH ×2 (04:47→16:32)
[2018-11-06] MEDS: clonazePAM 0.5 MG TAB PO SCH ×3 (05:59→20:34)
--- NOTE | 2018-11-06 08:19 | PN ---
PROGRESS NOTE DATE OF SERVICE: 11/05/2018 REASON FOR FOLLOWUP: Pneumonia. INTERVAL HISTORY: The patient is afebrile, he is breathing comfortably. Denies having any chest pain, no cough, no nausea, no vomiting has been noticed or any diarrhea. PHYSICAL EXAMINATION: Blood pressure 163/81 with a pulse of 72, temperature 99.3. He is 95% on room air. General description is an elderly male, lying in bed in no distress. RESPIRATORY SYSTEM: Unlabored breathing with decreased breath sounds. No wheeze. HEART: S1, S2. Regular rate and rhythm. ABDOMEN: Soft, no tenderness. . LABS: Hemoglobin 9.2 with a white count of 11.9, BUN of 17, creatinine 0.91. Blood culture has been negative so far. DIAGNOSTIC IMPRESSION AND PLAN: Patient admitted to the hospital with sepsis in a patient who did have a fever with possibly pneumonia, question of possible nosocomial pathogen. Patient has responded to the vancomycin and Azactam. Unfortunately, the patient does have multiple antibiotic allergies and he has no oral option. He will likely need Stallings or PICC line for completion of his antibiotic therapy. Continue supportive care. MMODL / IJN: [id number] /
[2018-11-06] MEDS: POLYETHYLENE GLYCOL 3350 17 GM POWD.PACK PO SCH (09:03)
[2018-11-06] MEDS: MULTIVITAMINS, THERA 1 EACH TAB PO SCH (09:04)
[2018-11-06] MEDS: OXcarbazepine 300 MG TAB PO SCH ×2 (09:05→16:32)
[2018-11-06] MEDS: PANTOPRAZOLE 40 MG TABLET PO SCH (09:06)
[2018-11-06] MEDS: ASCORBIC ACID 500 MG TAB PO SCH (09:06)
[2018-11-06] MEDS: FERROUS SULFATE 325 MG TAB PO SCH (09:07)
[2018-11-06] MEDS: DULoxetine HCL 30 MG CAPSULE.DR PO SCH (09:07)
[2018-11-06] MEDS: BETHANECHOL 25 MG TAB PO SCH ×3 (09:07→20:34)
[2018-11-06] MEDS: MONTELUKAST 10 MG TAB PO SCH (09:07)
[2018-11-06] MEDS: HALOPERIDOL ORAL SOLN 10 MG/5 ML CUP PO SCH ×3 (09:08→20:34)
[2018-11-06] MEDS: FLUoxetine HCL 20 MG CAP PO SCH (09:08)
[2018-11-06] MEDS: BENZTROPINE MESYLATE 1 MG TAB PO SCH (09:08)
--- NOTE | 2018-11-06 09:10 | PN ---
PROGRESS NOTE DATE OF SERVICE: 11/05/2018 REASON FOR FOLLOWUP: Nosocomial pneumonia. INTERVAL HISTORY: The patient is afebrile. He is breathing comfortably. Denies having any chest pain. No cough. No nausea or vomiting has been noticed or any diarrhea. PHYSICAL EXAMINATION: On examination, blood pressure 163/81 with a pulse of 72, temperature 99.3. He is 95% on room air. General description is an elderly male lying in bed in no distress. RESPIRATORY SYSTEM: Unlabored breathing with decreased breath sounds at the bases. No wheeze. HEART: S1, S2. Regular rate and rhythm. ABDOMEN: Soft, no tenderness. LABS: Hemoglobin 9.2 with white count 11.9, BUN of 17, creatinine 0.91. Blood culture has been negative so far. DIAGNOSTIC IMPRESSION AND PLAN: Patient admitted to the hospital with sepsis in a patient who did have a fever pneumonia, question of possible nosocomial pathogen. Patient has responded to the vancomycin and Azactam. Unfortunately, the patient does have multiple antibiotic allergies and he has no oral option. He will likely or PICC line for completion of his antibiotic therapy. Continue with supportive care. MMODL / IJN: [id number] /
[2018-11-06] MEDS: SODIUM CHLORIDE 0.9% 1,000 ML IV SCH ×3 (09:39→23:31)
[2018-11-06 10:38] LABS: HCT 33.2 % (39.0-53.0); HGB 10.9 gm/dL (13.0-17.5); MCH 30.7 pg (25.0-35.0); MCHC 32.9 g/dL (31.0-37.0); MCV 93.2 fL (80.0-100.0); Platelet Count 233 k/uL (150-450); RBC 3.56 m/uL (4.30-5.90); RDW 13.6 % (11.5-15.5); WBC 10.1 k/uL (3.8-10.6)
[2018-11-06 10:45] LABS: Anion Gap 7 mmol/L; Blood Urea Nitrogen 14 mg/dL (9-20); Carbon Dioxide 25 mmol/L (22-30); Chloride 106 mmol/L (98-107); Glucose 138 mg/dL (74-99); Potassium 3.8 mmol/L (3.5-5.1); Sodium 138 mmol/L (137-145)
[2018-11-06] MEDS ORDERED: VANCOMYCIN TROUGH DUE 1 EACH MISC MISCELLANE ONE (11:00)
--- NOTE | 2018-11-06 17:22 | P.PN ---
Subjective Progress Note Date: 11/06/18 Principal diagnosis: Right lung pneumonia, suspect aspiration. 68-year-old male patient known to me from previous hospitalizations, was noted of cerebral palsy and developmental delay and the patient lives in [place] in [place]. The patient got short of breath and he started having increased cough and congestion along with fever and tachycardia and tachypnea. The patient was initially taken to [facility] with the patient was found to be slightly hypotensive also. The patient was given IV fluids. The patient was given IV antibiotics including vancomycin. The patient was given also pressors and believes that she was on low-dose levothyroid and subsequently but pressure improved. Following that the patient got transferred to [facility]. CAT scan of the chest was done in the hospital that showed no evidence of any pulmonary embolism. Limited infiltration of the lung bases was Initiated. No significant leukocytosis. The rest of the blood work was essentially within normal limits. The patient was seen on the medical floor. The patient was on room air oxygen. He had a congested cough. Unable to bring up much sputum. Not having any chest pain. The patient has unable to swallow well without any difficulties with aspiration. Influenza screen that was done and [facility] was negative. Currently is hemodynamically stable. He was seen by infectious disease. He was started on IV vancomycin. He is also on IV aztreonam. He is known to have multiple ALLERGIES which limited our choice of antibiotics to include vancomycin. A repeat chest x-ray was done today that showed a patchy right perihilar and right lower lobe infiltrate here in our hospital. The patient is seen again today 11/06/2017 in follow-up on the regular medical floor. He is currently sitting up in a chair at the bedside. He is awake and alert in no acute distress. He is currently maintaining O2 saturations in the upper 90s on room air. He is afebrile. Hemodynamically stable. Blood culture reveals no growth. WBC 10.1. Hemoglobin 10.9. Creatinine 0.89. Objective - Vital Signs Vital signs: Vital Signs Temp 97.8 F 11/06/18 14:10 Pulse 71 11/06/18 14:10 Resp 16 11/06/18 14:10 BP 131/74 11/06/18 14:10 Pulse Ox 98 11/06/18 14:10 Intake & Output 11/05/18 11/06/18 11/06/18 18:59 06:59 18:59 Intake Total 720 890 Balance 720 890 Weight 54.431 kg Intake: Oral 720 890 Other: Voiding Method Toilet Toilet Incontinent Incontinent # Voids 1 3 2 - Exam Gen. appearance the patient is active, comfortable likely distress. He has obvious signs of cerebral palsy. He does have a garbled speech. Nonacute respiratory distress. Head exam was generally normal. There was no scleral icterus or corneal arcus. Mucous membranes were moist. Neck was supple and without jugular venous distension, thyromegaly, or carotid bruits. Carotids were easily palpable bilaterally. There was no adenopathy. Lungs show kyphoscoliosis along with crackles in lung bases more so on the right lung base compared to the left. Cardiac exam revealed the PMI to be normally situated and sized. The rhythm was regular and no extrasystoles were noted during several minutes of auscultation. The first and second heart sounds were normal and physiologic splitting of the second heart sound was noted. There were no murmurs, rubs, clicks, or gallops. Abdominal exam revealed normal bowel sounds. The abdomen was soft, non-tender, and without masses, organomegaly, or appreciable enlargement of the abdominal aorta. Examination of the extremities revealed easily palpable radial, femoral and pedal pulses. There was no cyanosis, clubbing or edema.The patient has some chronic contractures lower extremities related to cerebral palsy. Examination of the skin revealed no evidence of significant rashes, suspicious appearing nevi or other concerning lesions. - Labs CBC & Chem 7: 11/06/18 10:17 11/06/18 10:17 Labs: Abnormal Lab Results - Last 24 Hours (Table) 11/06/18 11/06/18 Range/Units 10:17 10:17 RBC 3.56 L (4.30-5.90) m/uL Hgb 10.9 L (13.0-17.5) gm/dL Hct 33.2 L (39.0-53.0) % Glucose 138 H (74-99) mg/dL Microbiology - Last 24 Hours (Table) 11/04/18 15:54 Blood Culture - Preliminary Blood No Growth after 24 hours Assessment and Plan Assessment: assessment 1 right lung pneumonia, consider aspiration. The patient had presented to the Hospital because of a right lung pneumonia, hypoxemia, tachycardia and tachypnea and hypotension and responded nicely to fluid and antibiotics. Currently off pressors on a medical floor. Chest x-ray confirms a right lung pneumonia findings. CAT scan of the chest that was done was negative for pulmonary embolism. 2 previous history of pneumonias with history of diminished laryngeal excursion and evidence of silent aspiration of thin liquids and significant delay in swallow based on the previous modified swallow and this evaluation was done approximately 3 years ago. 3 leukocytosis, improving secondary to underlying pneumonia 3 acute febrile illness secondary to above, recovered and the patient is currently afebrile hemodynamically stable 4 cerebral palsy. 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 Ardno. He is currently stable from the pulmonary standpoint. Maintaining good O2 saturations in the 90s on room air. He does have a loose nonproductive cough and blood cultures reveal no growth. No sputum sample all available. Continue his current antibiotics. Continue with bronchodilators. We'll continue to follow. I, the cosigning physician, performed a history & physical examination of the patient. Lungs sounds with few scattered rhonchi more so on the right. Maintaining good O2 saturations in the 90s on room air. I discussed the assessment and plan of care with my nurse practitioner, Antonina Meade. I attest to the above note as dictated by her.
--- NOTE | 2018-11-06 19:29 | P.PN ---
Subjective 11/05 Patient has a history of cerebral palsy but is able to understand and communicate with yes or no. He is trying to talk but I cannot understand what is trying to say. He does not complain of any shortness of breath or cough, he does not complains any chest pain racing heart. He is moving all of his upper and lower extremities on my command. 11/06 Patient indiacates that he is feeling much better coughing still sob better Objective - Vital Signs Vital signs: Vital Signs Temp 97.8 F 11/06/18 14:10 Pulse 71 11/06/18 14:10 Resp 22 11/06/18 17:50 BP 131/74 11/06/18 14:10 Pulse Ox 98 11/06/18 14:10 Intake & Output 11/06/18 11/06/18 11/07/18 06:59 18:59 06:59 Intake Total 1720 Balance 1720 Intake: Oral 1720 Other: Voiding Method Toilet Toilet Incontinent Incontinent # Voids 3 1 - Exam On exam, alert and oriented has a history of cerebral palsy but able to communicate with yes or no. He is having garbled speech HEENT: Conjunctivae normal. eyes normal. NECK: No JVD. No thyroid enlargement. No LNs CARDIOVASCULAR: S1, S2 muffled. No murmur has kyphoscoliosis, crackles at the lung bases ABDOMEN: Soft, nontender . No guarding. no masses palpable. No ascites, No hepatosplenomegaly.Bowel sounds heard. LEGS: No edema. no swelling NERVOUS SYSTEM: Denies is a cerebral palsy is able to move his upper and lower Ixodes and commence Skin: no ulcer no rash - Labs CBC & Chem 7: 11/06/18 10:17 11/06/18 10:17 Labs: Abnormal Lab Results - Last 24 Hours (Table) 11/06/18 11/06/18 Range/Units 10:17 10:17 RBC 3.56 L (4.30-5.90) m/uL Hgb 10.9 L (13.0-17.5) gm/dL Hct 33.2 L (39.0-53.0) % Glucose 138 H (74-99) mg/dL Microbiology - Last 24 Hours (Table) 11/04/18 15:54 Blood Culture - Preliminary Blood No Growth after 48 hours Assessment and Plan Assessment: Right lung pneumonia rule out aspiration Leukocytosis improved Cerebral palsy Epilepsy Hypertension Hyperlipidemia Kyphoscoliosis Plan - Continue vancomycin and aztreonam - Will have picc placed for abx - Continue rest of the meds - Will f/u - Likely discharged if cleared by ID afeter abx recommendations Time with Patient: Greater than 30
[2018-11-06] MEDS: ATORVASTATIN 10 MG TAB PO SCH (20:34)
[2018-11-07] MEDS: AZTREONAM 2 GM in SODIUM CHLORIDE 0.9% 100 ML IVPB SCH (04:31)
[2018-11-07] MEDS: clonazePAM 0.5 MG TAB PO SCH ×3 (04:31→20:15)
--- NOTE | 2018-11-07 04:37 | PN ---
PROGRESS NOTE DATE OF SERVICE: 11/06/2018 REASON FOR FOLLOWUP VISIT: Pneumonia, possible nosocomial. INTERVAL HISTORY: The patient is afebrile. The patient is breathing comfortably. The patient denies having any chest pain, shortness of breath ( ). No abdominal pain, no diarrhea. PHYSICAL EXAMINATION: Blood pressure 131/58 with a pulse of 71, temperature 97.3, he is 98% on room air. GENERAL DESCRIPTION: An elderly male up in the bed in no distress. RESPIRATORY SYSTEM: Unlabored breathing with decreased breath sounds at the bases. No wheeze. HEART: S1, S2. Regular rate and rhythm. ABDOMEN: Soft, no tenderness. LABS: Hemoglobin is 10.1, white count ( ) with a BUN of 14, creatinine 0.89. Blood culture has been negative. Sputum collected. DIAGNOSTIC IMPRESSION AND PLAN: Patient admitted to the hospital with pneumonia, concern for possible nosocomial pathogen in this patient who has multiple antibiotic allergies ( ), currently on Azactam and vancomycin. We will try to arrange for a med line and transition antibiotic therapy to Invanz. Continue supportive care. MMODL / IJN: [id number] /
[2018-11-07] MEDS: FLUoxetine HCL 20 MG CAP PO SCH (09:07)
[2018-11-07] MEDS: PANTOPRAZOLE 40 MG TABLET PO SCH (09:07)
[2018-11-07] MEDS: POLYETHYLENE GLYCOL 3350 17 GM POWD.PACK PO SCH (09:07)
[2018-11-07] MEDS: ASCORBIC ACID 500 MG TAB PO SCH (09:07)
[2018-11-07] MEDS: MULTIVITAMINS, THERA 1 EACH TAB PO SCH (09:07)
[2018-11-07] MEDS: DULoxetine HCL 30 MG CAPSULE.DR PO SCH (09:07)
[2018-11-07] MEDS: MONTELUKAST 10 MG TAB PO SCH (09:07)
[2018-11-07] MEDS: FERROUS SULFATE 325 MG TAB PO SCH (09:07)
[2018-11-07] MEDS: BETHANECHOL 25 MG TAB PO SCH ×3 (09:11→20:15)
[2018-11-07] MEDS: OXcarbazepine 300 MG TAB PO SCH ×2 (09:11→16:48)
[2018-11-07] MEDS: HALOPERIDOL ORAL SOLN 10 MG/5 ML CUP PO SCH ×3 (09:12→20:15)
[2018-11-07] MEDS: BENZTROPINE MESYLATE 1 MG TAB PO SCH (09:12)
[2018-11-07] MEDS: VANCOMYCIN 1,000 MG in SODIUM CHLORIDE 0.9% 250 ML IVPB SCH (13:23)
--- NOTE | 2018-11-07 13:25 | XR ---
EXAMINATION TYPE: XR chest 1V portable DATE OF EXAM: 11/07/2018 COMPARISON: 11/05/2018 HISTORY: Follow-up for pneumonia. TECHNIQUE: Single frontal view of the chest is obtained. FINDINGS: Emphysematous changes are seen within the lungs as there is pulmonary hyperinflation and b iapical lucency. The previously seen perihilar and right basilar opacities as well as retrocardiac op acity have improved in the interim. Few patchy opacities remain. Evaluation for pneumothorax is somew hat limited given the patient's chin obscures the lung apices however no sizable pneumothorax is seen . No sizable pleural effusion is noted. Osseous structures are grossly intact. Cardiomediastinal silh ouette is mildly enlarged. Scoliotic curvature of the thoracolumbar spine is seen. Cholecystectomy cl ips are noted. IMPRESSION: Improving multifocal pneumonia in comparison the prior of 11/05/2018, nearly resolved.
--- NOTE | 2018-11-07 13:29 | P.DS ---
Providers Date of admission: 11/04/18 03:33 Expected date of discharge: 11/07/18 Attending physician: Jovi Luu Consults: 11/04/18 14:04 Consult Physician Urgent Consulting Provider: Gisel Bird Consult Reason/Comments: Pneumonia Do you want consulting provider notified?: Already Contacted 11/04/18 21:21 Consult Physician Routine Consulting Provider: Mine Ardon Consult Reason/Comments: Pneumonia Do you want consulting provider notified?: Yes, Notify in am Primary care physician: Lance Sutton [facility] Course: Discharge diagnosis - Right lung pneumonia, cannot rule out aspiration - Leukocytosis - History of cerebral palsy - History of epilepsy - History of hypertension - History of hyperlipidemia - Kyphoscoliosis Very pleasant 68-year-old gentleman who can communicate yes or no and has garbled speech. He was admitted for increased shortness of breath and cough, fever and tachycardia. He was initially admitted to [facility] and he was found to be hypotensive. He was put on pressors and transferred to [facility]. He didn't pressors over here. He was followed by pulmonology and infectious disease. He was started on vancomycin and aztreonam.. Chest x-ray done here showed patchy right. Lower and right lower lobe infiltrate. His condition started to improve slowly and continuously every day. On 11/07/2018 On exam, alert and oriented as cerebral palsy and garbled speech but able to communicate with yes or no and by shaking his head. HEENT: Conjunctivae normal. eyes normal. NECK: No JVD. No thyroid enlargement. No LNs CARDIOVASCULAR: S1, S2 muffled. No murmur RESPIRATION: Breath sounds diminished in the bases. No rhonchi or crackles. No bronchial breathing. ABDOMEN: Soft, nontender . No guarding. no masses palpable. No ascites, No hepatosplenomegaly.Bowel sounds heard. LEGS: No edema. no swelling NERVOUS SYSTEM: Patient has kyphoscoliosis, he is moving all of his upper and lower extremities Joints: No active swelling. No inflammation. Kyphoscoliosis Patient will does be discharged to the care facility once cleared by pulmonology and once recommendations for antibiotic and the duration or pain from the infectious disease specialist. Patient Condition at Discharge: Stable Plan - Discharge Summary Discharge Rx Participant: No New Discharge Prescriptions: Continue Multivitamins, Thera [Multivitamin (formulary)] 1 tab PO DAILY@0900 Polyethylene Glycol 3350 [Miralax] 17 gm PO DAILY@0900 Omeprazole 20 mg PO DAILY@0600 Montelukast [Singulair] 10 mg PO DAILY@0900 Ferrous Sulfate [Iron (65 MG Elemental)] 325 mg PO DAILY@0900 Benztropine Mesylate [Cogentin] 1 mg PO DAILY@0900 Atorvastatin [Lipitor] 10 mg PO HS@2100 Acetaminophen [Tylenol] 500 mg PO Q6H PRN PRN Reason: Fever And/Or Mild Pain clonazePAM [KlonoPIN] 0.5 mg PO TID@0500,1300,2100 Bethanechol [Urecholine] 25 mg PO TID@0900,1300,2100 OXcarbazepine 600 mg PO BID@0900,1700 Loratadine 10 mg PO DAILY@0900 Magnesium Hydroxide [Milk of Magnesia] 2,400 mg PO DAILY PRN PRN Reason: Constipation Bisacodyl [Dulcolax] 10 mg RECTAL Q48H PRN PRN Reason: Constipation Ascorbic Acid [Vitamin C] 500 mg PO DAILY@0900 Calazime 1 applic TOPICAL BID DULoxetine HCL [Cymbalta] 30 mg PO DAILY@0900 FLUoxetine HCL [PROzac] 20 mg PO DAILY@0900 Fluticasone Nasal [place] [Flonase Nasal [place]] 1 spray EA NOSTRIL DAILY@0900 guaiFENesin-DM 100-10MG/5ML [Robitussin DM] 10 ml PO Q4H PRN PRN Reason: Cough Haloperidol 2.5 mg PO DAILY@0900,1300,2100 Haloperidol [Haldol] 10 mg PO TID@0900,1300,2100 Ipratropium-Albuterol Nebulize [Duoneb 0.5 mg-3 mg/3 ml Soln] 3 ml INHALATION Q12H PRN PRN Reason: Shortness Of Breath Ipratropium/Albuterol Sulfate [Combivent Respimat Inhaler] 1 puff INHALATION RT-QID@00,06,17,21 Meloxicam [Mobic] 15 mg PO DAILY@0900 Na Phos,M-B/Na Phos,Di-Ba [Fleet Adult] 133 ml RECTAL Q72H PRN PRN Reason: Constipation Discharge Medication List Acetaminophen [Tylenol] 500 mg PO Q6H PRN 08/08/16 [History] Atorvastatin [Lipitor] 10 mg PO HS@209908/08/16 [History] Benztropine Mesylate [Cogentin] 1 mg PO DAILY@0908/08/16 [History] Bethanechol [Urecholine] 25 mg PO TID@0900,1300,2100 08/08/16 [History] Bisacodyl [Dulcolax] 10 mg RECTAL Q48H PRN 08/08/16 [History] Ferrous Sulfate [Iron (65 MG Elemental)] 325 mg PO DAILY@0908/08/16 [History] Loratadine 10 mg PO DAILY@89908/08/16 [History] Magnesium Hydroxide [Milk of Magnesia] 2,400 mg PO DAILY PRN 08/08/16 [History] Montelukast [Singulair] 10 mg PO DAILY@0908/08/16 [History] Multivitamins, Thera [Multivitamin (formulary)] 1 tab PO DAILY@89908/08/16 [ History] OXcarbazepine 600 mg PO BID@0900,1700 08/08/16 [History] Omeprazole 20 mg PO DAILY@0608/08/16 [History] Polyethylene Glycol 3350 [Miralax] 17 gm PO DAILY@89908/08/16 [History] clonazePAM [KlonoPIN] 0.5 mg PO TID@0500,1300,209908/08/16 [History] Ascorbic Acid [Vitamin C] 500 mg PO DAILY@0911/04/18 [History] Calazime 1 applic TOPICAL BID 11/04/18 [History] DULoxetine HCL [Cymbalta] 30 mg PO DAILY@0911/04/18 [History] FLUoxetine HCL [PROzac] 20 mg PO DAILY@89911/04/18 [History] Fluticasone Nasal [place] [Flonase Nasal [place]] 1 spray EA NOSTRIL DAILY@03/17 [History] Haloperidol 2.5 mg PO DAILY@0900,1300,209911/04/18 [History] Haloperidol [Haldol] 10 mg PO TID@0900,1300,209911/04/18 [History] Ipratropium-Albuterol Nebulize [Duoneb 0.5 mg-3 mg/3 ml Soln] 3 ml INHALATION Q12H PRN 11/04/18 [History] Ipratropium/Albuterol Sulfate [Combivent Respimat Inhaler] 1 puff INHALATION RT- QID@00,06,17,21 11/04/18 [History] Meloxicam [Mobic] 15 mg PO DAILY@0900 11/04/18 [History] Na Phos,M-B/Na Phos,Di-Ba [Fleet Adult] 133 ml RECTAL Q72H PRN 11/04/18 [History ] guaiFENesin-DM 100-10MG/5ML [Robitussin DM] 10 ml PO Q4H PRN 11/04/18 [History] Follow up Appointment(s)/Referral(s): None,Stated [REFERRING] - 1-2 days Activity/Diet/Wound Care/Special Instructions: If the patient starts to have any increased shortness of breath or cough, any fevers or chills, any chest pain or racing heart, any altered level of consciousness, please call 911 and get the patient immediately to the ER Care Plan Goals (MU): Discharge the patient if cleared by pulmonary and infectious disease Infectious disease to recommend that the antibiotics for discharge and the total duration Discharge Disposition: TRANSFER TO SNF/ECF
[2018-11-07] MEDS ORDERED: ERTAPENEM 1 GM in SODIUM CHLORIDE 0.9% 50 ML IVPB ONE (15:00)
--- NOTE | 2018-11-07 15:00 | P.PN ---
Subjective Progress Note Date: 11/07/18 Principal diagnosis: Right lung pneumonia, suspect aspiration. 68-year-old male patient known to me from previous hospitalizations, was noted of cerebral palsy and developmental delay and the patient lives in [place] in [place]. The patient got short of breath and he started having increased cough and congestion along with fever and tachycardia and tachypnea. The patient was initially taken to [facility] with the patient was found to be slightly hypotensive also. The patient was given IV fluids. The patient was given IV antibiotics including vancomycin. The patient was given also pressors and believes that she was on low-dose levothyroid and subsequently but pressure improved. Following that the patient got transferred to [facility]. CAT scan of the chest was done in the hospital that showed no evidence of any pulmonary embolism. Limited infiltration of the lung bases was Initiated. No significant leukocytosis. The rest of the blood work was essentially within normal limits. The patient was seen on the medical floor. The patient was on room air oxygen. He had a congested cough. Unable to bring up much sputum. Not having any chest pain. The patient has unable to swallow well without any difficulties with aspiration. Influenza screen that was done and [facility] was negative. Currently is hemodynamically stable. He was seen by infectious disease. He was started on IV vancomycin. He is also on IV aztreonam. He is known to have multiple ALLERGIES which limited our choice of antibiotics to include vancomycin. A repeat chest x-ray was done today that showed a patchy right perihilar and right lower lobe infiltrate here in our hospital. The patient is seen again today 11/06/2017 in follow-up on the regular medical floor. He is currently sitting up in a chair at the bedside. He is awake and alert in no acute distress. He is currently maintaining O2 saturations in the upper 90s on room air. He is afebrile. Hemodynamically stable. Blood culture reveals no growth. WBC 10.1. Hemoglobin 10.9. Creatinine 0.89. The patient is seen today 11/07/2018 in follow-up on the regular medical floor. He is currently sitting up in a chair at the bedside. He is asking to go home. He denies any worsening shortness of breath, cough or congestion. He continues to maintain good O2 saturations in the mid 90s on room air. He's been afebrile. Hemodynamically stable. Blood culture reveals no growth. Chest x-ray shows improvement in the multifocal pneumonia. Nearly completely resolved. Antibiotics per ID. Objective - Vital Signs Vital signs: Vital Signs Temp 97.2 F L 11/07/18 07:37 Pulse 66 11/07/18 07:37 Resp 16 11/07/18 07:37 BP 127/67 11/07/18 07:37 Pulse Ox 98 11/07/18 07:37 Intake & Output 11/06/18 11/07/18 11/07/18 18:59 06:59 18:59 Intake Total 1720 700 Balance 1720 700 Intake: Oral 1720 700 Other: Voiding Method Toilet Toilet Incontinent Incontinent # Voids 1 2 - Exam Gen. appearance the patient is active, comfortable likely distress. He has obvious signs of cerebral palsy. He does have a garbled speech. Nonacute respiratory distress. On room air. Head exam was generally normal. There was no scleral icterus or corneal arcus. Mucous membranes were moist. Neck was supple and without jugular venous distension, thyromegaly, or carotid bruits. Carotids were easily palpable bilaterally. There was no adenopathy. Lungs show kyphoscoliosis along with crackles in lung bases more so on the right lung base compared to the left. Cardiac exam revealed the PMI to be normally situated and sized. The rhythm was regular and no extrasystoles were noted during several minutes of auscultation. The first and second heart sounds were normal and physiologic splitting of the second heart sound was noted. There were no murmurs, rubs, clicks, or gallops. Abdominal exam revealed normal bowel sounds. The abdomen was soft, non-tender, and without masses, organomegaly, or appreciable enlargement of the abdominal aorta. Examination of the extremities revealed easily palpable radial, femoral and pedal pulses. There was no cyanosis, clubbing or edema.The patient has some chronic contractures lower extremities related to cerebral palsy. Examination of the skin revealed no evidence of significant rashes, suspicious appearing nevi or other concerning lesions. - Labs CBC & Chem 7: 11/06/18 10:17 11/06/18 10:17 Labs: Microbiology - Last 24 Hours (Table) 11/04/18 15:54 Blood Culture - Preliminary Blood No Growth after 48 hours Assessment and Plan Assessment: assessment 1 right lung pneumonia, consider aspiration. The patient had presented to the Hospital because of a right lung pneumonia, hypoxemia, tachycardia and tachypnea and hypotension and responded nicely to fluid and antibiotics. Currently off pressors on a medical floor. Follow-up chest x-ray today reveals near complete resolution of the pneumonia. 2 previous history of pneumonias with history of diminished laryngeal excursion and evidence of silent aspiration of thin liquids and significant delay in swallow based on the previous modified swallow and this evaluation was done approximately 3 years ago. 3 leukocytosis, improving secondary to underlying pneumonia 3 acute febrile illness secondary to above, recovered and the patient is currently afebrile hemodynamically stable 4 cerebral palsy. 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 Ardon. His x-ray shows near complete resolution of the pneumonia. Good saturations on room air. He is cleared for discharge. Antibiotics per infectious disease. I, the cosigning physician, performed a history & physical examination of the patient. Lungs sounds with few scattered rhonchi more so on the right. Maintaining good O2 saturations in the 90s on room air. I discussed the assessment and plan of care with my nurse practitioner, Antonina Meade. I attest to the above note as dictated by her.
--- NOTE | 2018-11-07 15:56 | PN ---
PROGRESS NOTE DATE OF SERVICE: 11/07/2018 REASON FOR FOLLOWUP: Pneumonia. INTERVAL HISTORY: The patient is currently afebrile, has been breathing comfortably. Denies having any chest pain. He did have some cough. No nausea or vomiting. No abdominal pain or diarrhea. PHYSICAL EXAMINATION: Blood pressure 127/67 with a pulse of 66, temperature 97.2. He is 98% on room air. General description is an elderly male up in the bed in no distress. RESPIRATORY SYSTEM: Unlabored breathing with decreased intensity of breath sounds. No wheeze. HEART: S1, S2. Regular rate and rhythm. ABDOMEN: Soft. No tenderness. EXTREMITIES: No edema of the feet. LABS: Hemoglobin of 10.9, white count 10.1, BUN of 14, creatinine 0.89. DIAGNOSTIC IMPRESSION AND PLAN: Patient with multifocal pneumonia. X-ray this morning showed overall improvement. Unfortunately patient has MULTIPLE ANTIBIOTIC ALLERGIES. That will limit the number of antibiotics that can be safely used. He will be given a dose of Invanz today. Discontinue Azactam and the vancomycin. If the patient tolerates, to continue with Invanz through a peripheral IV for another 5 days to finish course of therapy. Care was discussed with the admitting physician. Continue supportive care. MMODL / IJN: [id number] /
[2018-11-07] MEDS: ATORVASTATIN 10 MG TAB PO SCH (20:15)
[2018-11-08] MEDS: clonazePAM 0.5 MG TAB PO SCH ×3 (05:39→22:10)
[2018-11-08] MEDS: PANTOPRAZOLE 40 MG TABLET PO SCH (08:53)
[2018-11-08] MEDS: MONTELUKAST 10 MG TAB PO SCH (08:53)
[2018-11-08] MEDS: FERROUS SULFATE 325 MG TAB PO SCH (08:53)
[2018-11-08] MEDS: DULoxetine HCL 30 MG CAPSULE.DR PO SCH (08:53)
[2018-11-08] MEDS: ASCORBIC ACID 500 MG TAB PO SCH (08:53)
[2018-11-08] MEDS: MULTIVITAMINS, THERA 1 EACH TAB PO SCH (08:53)
[2018-11-08] MEDS: FLUoxetine HCL 20 MG CAP PO SCH (08:53)
[2018-11-08] MEDS: HALOPERIDOL ORAL SOLN 10 MG/5 ML CUP PO SCH ×3 (08:54→22:09)
[2018-11-08] MEDS: BETHANECHOL 25 MG TAB PO SCH ×3 (08:55→22:09)
[2018-11-08] MEDS: BENZTROPINE MESYLATE 1 MG TAB PO SCH (08:55)
[2018-11-08] MEDS: OXcarbazepine 300 MG TAB PO SCH ×2 (08:55→17:58)
[2018-11-08] MEDS: POLYETHYLENE GLYCOL 3350 17 GM POWD.PACK PO SCH (08:55)
[2018-11-08] MEDS: ERTAPENEM 1 GM in SODIUM CHLORIDE 0.9% 50 ML IVPB SCH (15:39)
--- NOTE | 2018-11-08 17:14 | P.PN ---
Subjective Progress Note Date: 11/08/18 68-year-old male patient known to me from previous hospitalizations, was noted of cerebral palsy and developmental delay and the patient lives in [place] in [place]. The patient got short of breath and he started having increased cough and congestion along with fever and tachycardia and tachypnea. The patient was initially taken to [facility] with the patient was found to be slightly hypotensive also. The patient was given IV fluids. The patient was given IV antibiotics including vancomycin. The patient was given also pressors and believes that she was on low-dose levothyroid and subsequently but pressure improved. Following that the patient got transferred to [facility]. CAT scan of the chest was done in the hospital that showed no evidence of any pulmonary embolism. Limited infiltration of the lung bases was Initiated. No significant leukocytosis. The rest of the blood work was essentially within normal limits. The patient was seen on the medical floor. The patient was on room air oxygen. He had a congested cough. Unable to bring up much sputum. Not having any chest pain. The patient has unable to swallow well without any difficulties with aspiration. Influenza screen that was done and [facility] was negative. Currently is hemodynamically stable. He was seen by infectious disease. He was started on IV vancomycin. He is also on IV aztreonam. He is known to have multiple ALLERGIES which limited our choice of antibiotics to include vancomycin. A repeat chest x-ray was done today that showed a patchy right perihilar and right lower lobe infiltrate here in our hospital. The patient is seen again today 11/06/2017 in follow-up on the regular medical floor. He is currently sitting up in a chair at the bedside. He is awake and alert in no acute distress. He is currently maintaining O2 saturations in the upper 90s on room air. He is afebrile. Hemodynamically stable. Blood culture reveals no growth. WBC 10.1. Hemoglobin 10.9. Creatinine 0.89. The patient is seen today 11/07/2018 in follow-up on the regular medical floor. He is currently sitting up in a chair at the bedside. He is asking to go home. He denies any worsening shortness of breath, cough or congestion. He continues to maintain good O2 saturations in the mid 90s on room air. He's been afebrile. Hemodynamically stable. Blood culture reveals no growth. Chest x-ray shows improvement in the multifocal pneumonia. Nearly completely resolved. Antibiotics per ID. On 11/08/2018, the patient is stable. The patient on having any significant respiratory distress. No cough or sputum production. No aspiration. No fever or chills. He is currently being treated for right lower lobe pneumonia. He has underlying cerebral palsy and epilepsy. He is seizure free. Other comorbidities include hypertension hyperlipidemia and kyphoscoliosis of the thoracic spine. The patient is awake and alert. He is tolerating his diet. He is still on DuoNeb nebulized treatments around the clock. He is being considered for discharge. His chest x-ray from yesterday showed improvement in the multifocal pneumonia and has nearly resolved. The patient will be discharged on IV Invanz to complete another 5 day course Objective - Vital Signs Vital signs: Vital Signs Temp 97.0 F L 11/08/18 14:00 Pulse 79 11/08/18 14:00 Resp 22 11/08/18 16:00 BP 135/83 11/08/18 14:00 Pulse Ox 99 11/08/18 14:00 Intake & Output 11/07/18 11/08/18 11/08/18 18:59 06:59 18:59 Intake Total 720 650 Balance 720 650 Intake: Oral 720 650 Other: Voiding Method Toilet Toilet Toilet # Voids 2 4 1 - Exam Gen. appearance the patient is active, comfortable likely distress. He has obvious signs of cerebral palsy. He does have a garbled speech. Nonacute respiratory distress. Head exam was generally normal. There was no scleral icterus or corneal arcus. Mucous membranes were moist. Neck was supple and without jugular venous distension, thyromegaly, or carotid bruits. Carotids were easily palpable bilaterally. There was no adenopathy. Lungs show kyphoscoliosis along with crackles in lung bases more so on the right lung base compared to the left. Cardiac exam revealed the PMI to be normally situated and sized. The rhythm was regular and no extrasystoles were noted during several minutes of auscultation. The first and second heart sounds were normal and physiologic splitting of the second heart sound was noted. There were no murmurs, rubs, clicks, or gallops. Abdominal exam revealed normal bowel sounds. The abdomen was soft, non-tender, and without masses, organomegaly, or appreciable enlargement of the abdominal aorta. Examination of the extremities revealed easily palpable radial, femoral and pedal pulses. There was no cyanosis, clubbing or edema.The patient has some chronic contractures lower extremities related to cerebral palsy. Examination of the skin revealed no evidence of significant rashes, suspicious appearing nevi or other concerning lesions. - Labs CBC & Chem 7: 11/06/18 10:17 11/06/18 10:17 Labs: Microbiology - Last 24 Hours (Table) 11/04/18 15:54 Blood Culture - Preliminary Blood No Growth after 72 hours Assessment and Plan Plan: assessment 1 right lung pneumonia, consider aspiration. The patient is much improved with a combination of aztreonam and vancomycin. The patient will be discharged on IV Invanz. Chest x-ray from yesterday showed considerable improvement. 2 previous history of pneumonias with history of diminished laryngeal excursion and evidence of silent aspiration of thin liquids and significant delay in swallow based on the previous modified swallow and this evaluation was done approximately 3 years ago. 3 leukocytosis, improving secondary to underlying pneumonia 3 acute febrile illness secondary to above, recovered and the patient is currently afebrile hemodynamically stable 4 cerebral palsy. 5 suspect history of aspiration pneumonias 6 epilepsy 7 hypertension 8 hyperlipidemia 9 developmental delay and mental retardation secondary to cerebral palsy 10 chronic iron deficiency anemia 11 thoracic kyphoscoliosis 12nursing home resident Plan Discharge this patient on IV Invanz. Aspiration precautions. Resume outpatient medications. We will sign off the case.
--- NOTE | 2018-11-08 20:42 | P.PN ---
Subjective 11/05 Patient has a history of cerebral palsy but is able to understand and communicate with yes or no. He is trying to talk but I cannot understand what is trying to say. He does not complain of any shortness of breath or cough, he does not complains any chest pain racing heart. He is moving all of his upper and lower extremities on my command. 11/06 Patient indiacates that he is feeling much better coughing still sob better 11/08 Awaiting PICC LINE VS medline placement. Says is doing fine no issues Objective - Vital Signs Vital signs: Vital Signs Temp 97.0 F L 11/08/18 14:00 Pulse 79 11/08/18 14:00 Resp 22 11/08/18 16:00 BP 135/83 11/08/18 14:00 Pulse Ox 99 11/08/18 14:00 Intake & Output 11/08/18 11/08/18 11/09/18 06:59 18:59 06:59 Intake Total 650 Balance 650 Intake: Oral 650 Other: Voiding Method Toilet Toilet # Voids 4 1 - Exam On exam, alert and oriented has a history of cerebral palsy but able to communicate with yes or no. He is having garbled speech HEENT: Conjunctivae normal. eyes normal. NECK: No JVD. No thyroid enlargement. No LNs CARDIOVASCULAR: S1, S2 muffled. No murmur has kyphoscoliosis, crackles at the lung bases ABDOMEN: Soft, nontender . No guarding. no masses palpable. No ascites, No hepatosplenomegaly.Bowel sounds heard. LEGS: No edema. no swelling NERVOUS SYSTEM: Denies is a cerebral palsy is able to move his upper and lower Ixodes and commence Skin: no ulcer no rash - Labs CBC & Chem 7: 11/06/18 10:17 11/06/18 10:17 Labs: Microbiology - Last 24 Hours (Table) 11/04/18 15:54 Blood Culture - Preliminary Blood No Growth after 96 hours Assessment and Plan Assessment: Right lung pneumonia rule out aspiration Leukocytosis improved Cerebral palsy Epilepsy Hypertension Hyperlipidemia Kyphoscoliosis Plan - Was started on invanz - Awaiting line placement - Afterwards can be transferred to ECF.
[2018-11-08] MEDS: ATORVASTATIN 10 MG TAB PO SCH (22:10)
[2018-11-08] MEDS: SODIUM CHLORIDE 0.9% 1,000 ML IV SCH (22:10)
--- NOTE | 2018-11-09 00:51 | PN ---
PROGRESS NOTE DATE OF SERVICE: 11/08/2018 REASON FOR FOLLOWUP: Pneumonia with MULTIPLE ANTIBIOTIC ALLERGY. INTERVAL HISTORY: The patient is currently afebrile wound. He is breathing comfortably. No discharge. No nausea, no vomiting. No diarrhea has been reported. PHYSICAL EXAMINATION: Blood pressure 135/83, pulse of 79, temperature is 97, pulse ox 99% on room air. General description is an elderly male lying in bed in no distress. Respiratory system: Unlabored breathing. Clear to auscultation anteriorly. Heart S1, S2. Regular rate and rhythm. ABDOMEN: Soft. No tenderness. No guarding. No rigidity. Extremities: No edema of the feet. LABS: No new labs have been obtained today. DIAGNOSTIC IMPRESSION AND PLAN: Patient with pneumonia possible gram-negative or aspiration in this patient who does have multiple antibiotic allergies with no oral option available. He will get a midline tomorrow. Continue with Invanz 1 G daily for another 5 days to finish a course of therapy. Continue supportive care. MMODL / IJN: [id number] /
[2018-11-09] MEDS: clonazePAM 0.5 MG TAB PO SCH ×2 (05:22→12:05)
[2018-11-09 08:08] VITALS: RESP 16
[2018-11-09] MEDS: DULoxetine HCL 30 MG CAPSULE.DR PO SCH (08:16)
[2018-11-09] MEDS: POLYETHYLENE GLYCOL 3350 17 GM POWD.PACK PO SCH (08:16)
[2018-11-09] MEDS: ASCORBIC ACID 500 MG TAB PO SCH (08:16)
[2018-11-09] MEDS: FLUoxetine HCL 20 MG CAP PO SCH (08:16)
[2018-11-09] MEDS: FERROUS SULFATE 325 MG TAB PO SCH (08:16)
[2018-11-09] MEDS: PANTOPRAZOLE 40 MG TABLET PO SCH (08:16)
[2018-11-09] MEDS: MULTIVITAMINS, THERA 1 EACH TAB PO SCH (08:16)
[2018-11-09] MEDS: MONTELUKAST 10 MG TAB PO SCH (08:16)
[2018-11-09] MEDS: HALOPERIDOL ORAL SOLN 10 MG/5 ML CUP PO SCH ×2 (08:17→12:05)
[2018-11-09] MEDS: OXcarbazepine 300 MG TAB PO SCH ×2 (08:17→17:17)
[2018-11-09] MEDS: BETHANECHOL 25 MG TAB PO SCH ×2 (08:17→12:05)
[2018-11-09] MEDS: BENZTROPINE MESYLATE 1 MG TAB PO SCH (08:17)
--- NOTE | 2018-11-09 13:42 | P.DS ---
Providers Date of admission: 11/04/18 03:33 Attending physician: Jovi Luu Consults: 11/04/18 14:04 Consult Physician Urgent Consulting Provider: Gisel Bird Consult Reason/Comments: Pneumonia Do you want consulting provider notified?: Already Contacted 11/04/18 21:21 Consult Physician Routine Consulting Provider: Mine Ardon Consult Reason/Comments: Pneumonia Do you want consulting provider notified?: Yes, Notify in am Primary care physician: Lance Lesley [facility] Course: This is a pleasant 68 years old male with past medical history of cerebral palsy and epilepsy. who presents because of right lung pneumonia, concerning for aspiration. Patient symptoms improved. Patient his present returned back to his baseline with no symptoms of coughing. His breathing is not labored. Patient has been evaluated by pulmonary service. And he has been receiving IV antibiotics. As per infectious disease recommendation patient will need to 5 more days of Invanz. Midline was placed today. His labs were refused and his leukocytosis on admission came back to normal. Rest of CBC and BMP was unremarkable except for mild anemia at 10.9. His sugar is controlled. Patient was cleared for discharge by infectious disease, and pulmonary services. Patient was found stable and can be discharged to [facility]. However he needs follow- up as an outpatient. Gen: patient is a alert and awake, no distress. FACS review of his history of cerebral palsy CVS: S1-S2, RRR, no murmur Lungs: B/L CTA, no wheezing Abdomen: soft, no distention, no tenderness, positive bowel sounds Extremity: no leg edema or induration Time spent more than 35 minutes Patient Condition at Discharge: Stable Plan - Discharge Summary Discharge Rx Participant: No New Discharge Prescriptions: New Ertapenem [INVanz] 1 gm IVPB Q24H #5 bag Haloperidol Oral Soln [Haldol Oral Soln] 12.5 mg PO DAILY@0900,1300,2100 cup Continue Multivitamins, Thera [Multivitamin (formulary)] 1 tab PO DAILY@0900 Polyethylene Glycol 3350 [Miralax] 17 gm PO DAILY@0900 Omeprazole 20 mg PO DAILY@0600 Montelukast [Singulair] 10 mg PO DAILY@0900 Ferrous Sulfate [Iron (65 MG Elemental)] 325 mg PO DAILY@0900 Benztropine Mesylate [Cogentin] 1 mg PO DAILY@0900 Atorvastatin [Lipitor] 10 mg PO HS@2099 Acetaminophen [Tylenol] 500 mg PO Q6H PRN PRN Reason: Fever And/Or Mild Pain clonazePAM [KlonoPIN] 0.5 mg PO TID@0500,1300,2099 Bethanechol [Urecholine] 25 mg PO TID@0900,1299,2099 OXcarbazepine 600 mg PO BID@0900,1700 Loratadine 10 mg PO DAILY@0900 Magnesium Hydroxide [Milk of Magnesia] 2,400 mg PO DAILY PRN PRN Reason: Constipation Bisacodyl [Dulcolax] 10 mg RECTAL Q48H PRN PRN Reason: Constipation Ascorbic Acid [Vitamin C] 500 mg PO DAILY@0900 Calazime 1 applic TOPICAL BID DULoxetine HCL [Cymbalta] 30 mg PO DAILY@0900 FLUoxetine HCL [PROzac] 20 mg PO DAILY@0900 Fluticasone Nasal [place] [Flonase Nasal [place]] 1 spray EA NOSTRIL DAILY@0900 guaiFENesin-DM 100-10MG/5ML [Robitussin DM] 10 ml PO Q4H PRN PRN Reason: Cough Ipratropium-Albuterol Nebulize [Duoneb 0.5 mg-3 mg/3 ml Soln] 3 ml INHALATION Q12H PRN PRN Reason: Shortness Of Breath Ipratropium/Albuterol Sulfate [Combivent Respimat Inhaler] 1 puff INHALATION RT-QID@00,06,17,21 Na Phos,M-B/Na Phos,Di-Ba [Fleet Adult] 133 ml RECTAL Q72H PRN PRN Reason: Constipation Discontinued Haloperidol 2.5 mg PO DAILY@0900,1300,2099 Haloperidol [Haldol] 10 mg PO TID@0900,1300,2100 Meloxicam [Mobic] 15 mg PO DAILY@0900 Discharge Medication List Acetaminophen [Tylenol] 500 mg PO Q6H PRN 08/08/16 [History] Atorvastatin [Lipitor] 10 mg PO HS@209908/08/16 [History] Benztropine Mesylate [Cogentin] 1 mg PO DAILY@0900 08/08/16 [History] Bethanechol [Urecholine] 25 mg PO TID@0900,1300,209908/08/16 [History] Bisacodyl [Dulcolax] 10 mg RECTAL Q48H PRN 08/08/16 [History] Ferrous Sulfate [Iron (65 MG Elemental)] 325 mg PO DAILY@0900 08/08/16 [History] Loratadine 10 mg PO DAILY@0908/08/16 [History] Magnesium Hydroxide [Milk of Magnesia] 2,400 mg PO DAILY PRN 08/08/16 [History] Montelukast [Singulair] 10 mg PO DAILY@0908/08/16 [History] Multivitamins, Thera [Multivitamin (formulary)] 1 tab PO DAILY@0908/08/16 [ History] OXcarbazepine 600 mg PO BID@0900,1700 08/08/16 [History] Omeprazole 20 mg PO DAILY@0600 08/08/16 [History] Polyethylene Glycol 3350 [Miralax] 17 gm PO DAILY@0908/08/16 [History] clonazePAM [KlonoPIN] 0.5 mg PO TID@0500,1300,2100 08/08/16 [History] Ascorbic Acid [Vitamin C] 500 mg PO DAILY@0900 11/04/18 [History] Calazime 1 applic TOPICAL BID 11/04/18 [History] DULoxetine HCL [Cymbalta] 30 mg PO DAILY@0911/04/18 [History] FLUoxetine HCL [PROzac] 20 mg PO DAILY@0900 11/04/18 [History] Fluticasone Nasal [place] [Flonase Nasal [place]] 1 spray EA NOSTRIL DAILY@0903/17 [History] Ipratropium-Albuterol Nebulize [Duoneb 0.5 mg-3 mg/3 ml Soln] 3 ml INHALATION Q12H PRN 11/04/18 [History] Ipratropium/Albuterol Sulfate [Combivent Respimat Inhaler] 1 puff INHALATION RT- QID@00,06,17,21 11/04/18 [History] Na Phos,M-B/Na Phos,Di-Ba [Fleet Adult] 133 ml RECTAL Q72H PRN 11/04/18 [History ] guaiFENesin-DM 100-10MG/5ML [Robitussin DM] 10 ml PO Q4H PRN 02/06/19 [History] Ertapenem [INVanz] 1 gm IVPB Q24H #5 bag 11/07/18 [Rx] Haloperidol Oral Soln [Haldol Oral Soln] 12.5 mg PO DAILY@0900,1300,2100 cup [Rx] Follow up Appointment(s)/Referral(s): None,Stated [REFERRING] - 1-2 days Activity/Diet/Wound Care/Special Instructions: "Per [facility], please call them at [phone] when patient is ready for discharge. Their heel caser there will setup transportation to [facility]. " -If the patient starts to have any increased shortness of breath or cough, any fevers or chills, any chest pain or racing heart, any altered level of consciousness, please call 911 and get the patient immediately to the ER Care Plan Goals (MU): Discharge the patient if cleared by pulmonary and infectious disease Infectious disease to recommend that the antibiotics for discharge and the total duration Discharge Disposition: TRANSFER TO SNF/ECF
[2018-11-09 14:46] VITALS: BP 131/72; PULSE 69; TEMP 97.7
[2018-11-09] MEDS: ERTAPENEM 1 GM in SODIUM CHLORIDE 0.9% 50 ML IVPB SCH (15:25)
--- NOTE | 2018-11-09 17:16 | PN ---
PROGRESS NOTE DATE OF SERVICE: 11/09/2018. REASON FOR FOLLOWUP: Pneumonia. INTERVAL HISTORY: The patient is currently afebrile. He is breathing comfortably. He did have some cough. No nausea, vomiting and no shortness of breath. No abdominal pain or any diarrhea. PHYSICAL EXAMINATION: Blood pressure 131/72 with a pulse of 69, temp 97.3. He is 98% on room air. General description is an elderly male lying in bed in no distress. Respiratory system: Unlabored breathing with decreased breath sounds in the bases. No wheeze. Heart S1, S2. Regular rate and rhythm. Abdomen soft, no tenderness. LABS: No new labs have been obtained today. Blood culture has been negative. DIAGNOSTIC IMPRESSION AND PLAN: Patient with pneumonia, likely aspiration etiology. The patient at this time to finish therapy with IV Invanz 1 g daily for another 5 days as only option available. Continue supportive care. MMAUGUSTAL / DARIN: [id number] /
== END 2018-11-09 18:17 | DRG 179 ==
LOC: EC 02:22 → 3NMEDONC 03:33 → EEVIPCON 03:33 → 4MS4W 12:26
PROVIDERS: ADMIT Hospitalist; ATTEND Hospitalist
PROC: 05HC33Z Insertion of Infusion Device into Left Basilic Vein, Percutaneous Approach (ICD-10-PCS; principal; 2018-11-09 13:00)
DX: J69.0 Pneumonitis due to inhalation of food and vomit (principal); D50.9 Iron deficiency anemia, unspecified; E78.5 Hyperlipidemia, unspecified; F79 Unspecified intellectual disabilities; G40.909 Epilepsy, unspecified, not intractable, without status epilepticus; G80.9 Cerebral palsy, unspecified; J44.9 Chronic obstructive pulmonary disease, unspecified; I10 Essential (primary) hypertension; K21.9 Gastro-esophageal reflux disease without esophagitis; M19.90 Unspecified osteoarthritis, unspecified site; M41.9 Scoliosis, unspecified; N40.0 Benign prostatic hyperplasia without lower urinary tract symptoms; R09.02 Hypoxemia; R13.10 Dysphagia, unspecified; Z79.1 Long term (current) use of non-steroidal anti-inflammatories (NSAID); Z79.899 Other long term (current) drug therapy; Z80.3 Family history of malignant neoplasm of breast; Z87.440 Personal history of urinary (tract) infections; Z88.1 Allergy status to other antibiotic agents; Z90.79 Acquired absence of other genital organ(s); Z96.641 Presence of right artificial hip joint; Z88.0 Allergy status to penicillin; Z91.011 Allergy to milk products; R94.5 Abnormal results of liver function studies; Z87.01 Personal history of pneumonia (recurrent); M51.36 Other intervertebral disc degeneration, lumbar region; R79.1 Abnormal coagulation profile; I95.9 Hypotension, unspecified; K59.09 Other constipation
CPT/HCPCS: 36410; 36415; 71045; 76937; 80048; 80053; 80202; 82550; 82553; 83605; 84484; 85025; 85027; 85610; 85730; 87040; 93005; 96365; 96366; 99291